=== PATIENT | male | born 1980 | race Caucasian/White ===

== ENCOUNTER 2022-03-15 00:08 | Emergency (ER) | payer OTHER, SELFPAY ==
[2022-03-15 00:25] VITALS: BP 149/108; PULSE 76; RESP 18; TEMP 36.7; O2SAT 97; BMI 35.6
--- NOTE | 2022-03-15 01:03 | XRR_ITS ---
PROCEDURE INFORMATION: Exam: XR Right Knee Exam date and time: 03/15/2022 1:24 AM Age: 42 years old Clinical indication: Pain; Knee; Right; Additional info: Knee pain and swelling TECHNIQUE: Imaging protocol: Radiologic exam of the Right knee. Views: 3 views. COMPARISON: No relevant prior studies available. FINDINGS: Bones/joints: Normal. Soft tissues: Normal. XR/XR knee RT 3V* [id number] IMPRESSION: No acute findings.
[2022-03-15] MEDS: ketorolac 30 mg/mL INJ IM (03:31)
[2022-03-15 03:32] VITALS: RESP 17
[2022-03-15] MEDS: oxyCODONE-APAP 5-325 mg Tablet 2 TAB PO (03:32)
[2022-03-15 03:54] VITALS: BP 127/84; PULSE 68; RESP 17; O2SAT 96
--- NOTE | 2022-03-15 03:56 | PC.NURSE ---
patient unable to bear weight. Crutches adjusted and crutch training performed.
--- NOTE | 2022-03-15 16:41 | W.ED.EXTPRO ---
HPI - Extremity Problem General: Chief complaint: Extremity Injury, Lower Stated complaint: Right Knee Pain Time Seen by Provider: 03/15/22 00:33 History of Present Illness: 42 year old gentleman who presents with right knee pain and swelling. He does not have a specific injury that he notes, but does note pain and swelling following activity yesterday. No prior knee injury. No fever. No hx of gout. No redness or streaking. No edema of the leg. MD Complaint: joint swelling and joint pain Onset (ago): hour(s) Pain Consistency: constant Location: right Quality: aching Radiation: none Relieving factors: immobilization Exacerbating factors: range of motion and weight bearing Associated symptoms: Deny arthralgias (no other), chest pain, fever(s), myalgias, rash or short of breath Review of Systems Const: Denies: fever(s) Card: Denies: chest pain Resp: Denies: dyspnea GI: Reports: nausea; Denies: abdominal pain or vomiting Musc: Denies: neck pain or back pain Skin/Breast: Denies: rash Neuro: Denies: numbness in extremities or weakness in extremities Physical Exam Const: COMMON NORMALS: no acute distress GENERAL APPEARANCE: cooperative; not ill appearing HENMT: COMMON NORMALS: normocephalic, atraumatic and Normal external nose present HEAD & SCALP: normocephalic and atraumatic NOSE: Normal external nose present Eye: COMMON NORMALS: Equal, round and reactive pupils present and EOMs intact bilaterally PUPIL: Yes Equal, round and reactive pupils present Neck/C-Spine: COMMON NORMALS: full ROM Chest: CHEST: Yes Symmetrical chest wall rise Resp: COMMON NORMALS: normal respiratory effort, No retractions and No use of accessory muscles Cardio: COMMON NORMALS: regular rate and regular rhythm RATE: regular rate RHYTHM: regular rhythm GI: INSPECTION: Yes normal to inspection Extremity: NARRATIVE EXTREMITY EXAM: Examination of the right knee reveals a small effusion. There is some warmth. There is no redness. There is pain with knee flexion. Valgus Testing is guarded, but somewhat positive. there's tenderness along the medial joint line. No significant tenderness otherwise. No deformity. Pulses in sensation are intact distally. There is no calf tenderness. There is no popliteal tenderness. There is no lower extremity edema. Neuro: MAJO COMA SCALE: document GCS findings Majo coma scale eye opening: Spontaneous Majo coma scale verbal response: Orientated Majo coma scale motor response: Obey commands Majo coma scale total score: 15 Skin: OTHER: see above Course Vital Signs: Vital signs: Vital Signs Temperature 98.1 F 03/15/22 00:25 Pulse Rate 68 03/15/22 03:54 Respiratory Rate 17 03/15/22 03:54 Blood Pressure 127/84 03/15/22 03:54 Pulse Oximetry 96 03/15/22 03:54 Oxygen Delivery Me thod 03/15/22 00:25 MDM - Extremity (Nontraumatic) Medical Decision Making 42 year old patient with an MCL injury clinically by exam. X-ray shows no deformity or fracture. There is a small effusion present. He will be treated with the name mobilizer, crutches is needed, and close outpatient follow up. He knows he returns for fever, worsening pain despite treatment, redness or streaking as well as edema or shortness of breath. Lab Data Radiology Impressions Knee X-Ray 03/15/22 01:03 IMPRESSION: No acute findings. Discharge Plan Discharge Patient Disposition: Home Clinical Impression: Acute knee pain, Acute internal derangement of knee Condition: Stable Prescriptions: New Percocet 7.5-325 mg tablet 1 tab PO Q6H PRN (Reason: pain) Qty: 6 0RF Medrol (Ethan) 4 mg tablets,dose pack See Rx Instructions .ROUTE .COMPLEX Qty: 21 0RF Rx Instructions: orally per package directions Discharge Orders: Discharge ED (Routine); Ordered 03/15/22 Ordered By: Estuardo Guidry Patient Instructions: Knee Sprain (ED), Knee Immobilizer (ED), Opioid Safety Activity Restrictions/Additional Instructions: Return for fever, worsening pain despite treatment, worsening swelling despite treatment, pain in your calf or leg or swelling in your calf or leg, redness, streaking, shortness of breath, chest discomfort, or any other concerning symptoms. Follow-up with your doctor next week. You may use the knee immobilizer for weightbearing as you tolerate. Do not use it any more than 1 week. Coding Level of Care Code ED Staff Training And Development Manager for Lamine Jay
== END 2022-03-15 03:57 | disposition home or self-care (01) ==
PROVIDERS: Emergency Provider Emergency Medicine
DX: M23.91 Unspecified internal derangement of right knee (principal)
CPT/HCPCS: 29530; 73562; 96372; 99284; E0114; J1885

== ENCOUNTER 2022-04-01 07:45 | Outpatient (CLI) | payer OTHER, SELFPAY ==
--- NOTE | 2022-04-01 07:56 | XR_ITS ---
WS: [id number] KUB, AP view, 04/01/2022 Clinical Data: STONES Comparison: None. Findings: There are bilateral irregular calcifications overlying both kidneys No abnormal intraabdominal masses are seen. There is no dilatated small bowel or evidence of obstruct ion. There is a small artifact, probably from surgery, overlying the left pubic symphysis. XR/XR KUB [id number] Impression: Bilateral renal calcifications.
== END 2022-04-01 07:46 | disposition home or self-care (01) ==
LOC: RAD 07:48
PROVIDERS: PCP Nurse Practitioner Pediatrics; Visit Provider Urology
DX: N20.0 Calculus of kidney (principal)
CPT/HCPCS: 74018; 82365; 88300; 99203

== ENCOUNTER → 2022-04-16 12:40 | Outpatient (BNVA) | payer OTHER, SELFPAY | PROVIDERS: PCP Nurse Practitioner Pediatrics; Visit Provider Nurse Practitioner Family | DX: N20.0 Calculus of kidney (principal) | CPT/HCPCS: 81003 ==

== ENCOUNTER 2022-04-30 08:30 | Outpatient (CLI) | payer OTHER, SELFPAY ==
--- NOTE | 2022-04-30 | US_ITS ---
WS: [id number] RIGHT UPPER QUADRANT ULTRASOUND HISTORY: RIGHT UPPER QUAD FOR ELEVATED LIVER ENZYMES COMPARISON: None available. Liver: 18.2 cm in length. Mildly enlarged liver. Coarsened echotexture from hepatic steatosis. No mas s or bile duct dilatation. Portal Vein: Normal hepatopetal flow with monophasic waveform. Gallbladder: Normally distended gallbladder with a stone measuring 1.7 cm. This stone is near the gal lbladder neck. Gallstone does not move with patient positioning and could be entrapped. At this time no evidence for acute cholecystitis. CBD: 0.8 cm Pancreas: Poorly visualized due to body habitus. Right kidney: 12.8 cm in length. Normal size and echogenicity. No hydronephrosis or mass. Aorta and IVC: Unremarkable abdominal aorta and IVC. No ascites. US/US abdomen limited [id number] IMPRESSION: 1. Cholelithiasis. Gallstone is noted at the gallbladder neck which does not m ove with patient positioning. The common bile duct is very minimally prominent. Consider surgical evaluation as this gallstone may be entrapped and result in acute cholecystitis with duct dilatation. 2. Moderate hepatomegaly and hepatic steatosis.
[2022-04-30 09:35] LABS: Blood Urea Nitrogen 9 mg/dL (6-20); Calcium 10.1 mg/dL (8.5-10.5); Carbon Dioxide 23 mmol/L (22-29); Chloride 106 mmol/L (98-107); Glomerular Filtration Rate 91.7 mL/min (90-130); Glucose 123 mg/dL (65-115); Osmolality Calculated 290 mOsm/kg (285-295); Phosphorus 2.2 mg/dL (2.5-4.5); Sodium 140 mmol/L (136-145); Uric Acid 10.5 mg/dL (3.4-7.0)
[2022-05-05 18:13] LABS: Calcium-Oxalate 4.12 (<2.00); Uric Stone 2.72 (<2.00); Urine Ammonia 24 Hour 17 mEq/day (14-62); Urine Citric Acid 24 Hour 337 mg/day (>320); Urine PH 24 Hour 5.9 (5.5-7.0); Urine Phosphorus 24 Hour 736 mg/day (<1100); Urine Potassium 24 Hour 43 mEq/day (19-135); Urine Sulfate 24 Hour 15 mmol/day (<30)
== END 2022-04-30 08:31 | disposition home or self-care (01) ==
LOC: RAD 08:32
PROVIDERS: Nurse Practitioner Family; PCP Nurse Practitioner Pediatrics; Visit Provider Family Medicine
DX: Z01.89 Encounter for other specified special examinations (principal); N20.0 Calculus of kidney; K80.20 Calculus of gallbladder without cholecystitis without obstruction; K76.0 Fatty (change of) liver, not elsewhere classified
CPT/HCPCS: 36415; 76705; 80048; 81003; 82131; 82140; 82340; 82436; 82507; 82570; 83735; 83935; 84100; 84300; 84550

== ENCOUNTER 2022-05-14 14:26 | Outpatient (CLI) | payer OTHER, SELFPAY ==
--- NOTE | 2022-05-14 14:36 | XR_ITS ---
WS: [id number] Exam: XR KUB [id number] Date/Time of Exam: 05/14/2022 2:36 PM Reason For Exam: Calculus of Kidney Comparison 04/01/2022. Multiple calcifications superimpose both kidneys apparently representing known renal stones. No bowel obstruction or free air. No sign of organ enlargement. Regional bony elements are intact. XR/XR KUB [id number] IMPRESSION: 1. Multiple calcifications superimposing the bilateral kidneys representing kno wn renal stones. 2. No acute abdominal process.
== END 2022-05-14 14:27 | disposition home or self-care (01) ==
LOC: RAD 14:29
PROVIDERS: PCP Nurse Practitioner Pediatrics; Visit Provider Urology
DX: N20.0 Calculus of kidney (principal); R82.992 Hyperoxaluria; R82.993 Hyperuricosuria
CPT/HCPCS: 74018; 81003; 99213

== ENCOUNTER 2022-07-26 17:31 | Emergency (ER) | payer OTHER, SELFPAY ==
[2022-07-26 17:45] VITALS: BP 152/84; PULSE 64; RESP 16; TEMP 36.6; O2SAT 99
--- NOTE | 2022-07-26 17:50 | ECG_ITS ---
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 Measurements Intervals [place] Rate: 58 P: 39 WY: 157 QRS: -1 QRSD: 96 T: 32 QT: 414 QTc: 409 Interpretive Statements SINUS BRADYCARDIA No previous ECG available for comparison Electronically Signed On 07-26-2022 20:07:22 BOMB SQUAD COMMANDER by Matias Valentin M.D. [id number] f
--- NOTE | 2022-07-26 19:38 | XRR_ITS ---
PROCEDURE INFORMATION: Exam: XR Chest Exam date and time: 07/26/2022 7:46 PM Age: 42 years old Clinical indication: Other: Near syncope episode; Additional info: Near synocpe TECHNIQUE: Imaging protocol: Radiologic exam of the chest. Views: 1 view. COMPARISON: CR XR KUB [id number] 05/14/2022 2:36 PM FINDINGS: Lungs: Visualized portions of the lungs are clear. There is no pulmonary venous congestion. Pleural spaces: Unremarkable. No pleural effusion. No pneumothorax. Heart/Mediastinum: Heart is within normal limits of size. Bones/joints: No acute fracture. XR/XR chest 1V portable [id number] IMPRESSION: No acute infiltrate.
--- NOTE | 2022-07-26 19:38 | ECG_ITS ---
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 Measurements Intervals [place] Rate: 57 P: 16 [place]: 172 QRS: 2 QRSD: 94 T: 26 QT: 421 QTc: 411 Interpretive Statements SINUS BRADYCARDIA Compared to ECG 07/26/2022 17:48:38 No significant changes Electronically Signed On 07-26-2022 20:08:41 ELASTIC CUTTER by Matias Valentin M.D. [id number]
--- NOTE | 2022-07-26 19:38 | CTR_ITS ---
PROCEDURE INFORMATION: Exam: CT Head Without Contrast Exam date and time: 07/26/2022 7:49 PM Age: 42 years old Clinical indication: Dizziness; Patient HX: HX traumatic brain injury with seizures since; Additional info: Near syncope TECHNIQUE: Imaging protocol: Computed tomography of the head without contrast. Radiation optimization: All CT scans at this facility use at least one of these dose optimization techniques: automated exposure control; mA and/or kV adjustment per patient size (includes targeted exams where dose is matched to clinical indication); or iterative reconstruction. COMPARISON: No relevant prior studies available. RADIATION DOSE METRICS: Total DLP (mGy-cm): 1180.08 FINDINGS: Brain: Normal. No hemorrhage. Unremarkable white matter. No mass effect. Cerebral ventricles: No ventriculomegaly. Paranasal sinuses: Visualized sinuses are unremarkable. No fluid levels. Mastoid air cells: Visualized mastoid air cells are well aerated. Bones/joints: Unremarkable. No acute fracture. Soft tissues: Unremarkable. CT/CT head wo con* [id number] IMPRESSION: No acute intracranial abnormality.
[2022-07-26 19:50] VITALS: BP 121/80; PULSE 56; RESP 14; O2SAT 98
[2022-07-26] MEDS: sodium chloride 0.9% 1,000 ML 999 ML IV (19:53)
[2022-07-26 20:28] LABS: Basophils # 0.1 10^3/uL (0.0-0.1); Basophils % 0.8 %; Eosinophils # 0.3 10^3/uL (0.0-0.8); Eosinophils % 4.6 %; Hematocrit 49.2 % (42.0-52.0); Hemoglobin 16.2 g/dL (11.7-16.6); Lymphocytes # 1.9 10^3/uL (0.8-4.8); Lymphocytes % 28.5 %; Mean Corpuscular HGB Conc 32.9 g/dL (30.0-36.0); Mean Corpuscular Hemoglobin 29.2 pg (28.0-34.0); Mean Corpuscular Volume 88.8 fl (80-94); Mean Platelet Volume 9.8 fL (7.4-10.4); Monocytes # 0.6 10^3/uL (0.2-0.9); Neutrophils # 3.68 10^3/uL (1.8-7.7); Neutrophils % 56.8 %; Nucleated Red Blood Cells % 0 %; Platelet Count 242 10^3/cmm (130-400); Red Blood Count 5.54 10^6/uL (4.1-5.3); Red Cell Distribution Width 12.7 % (12.1-15.1); White Blood Count 6.5 10^3/uL (4.0-10.0)
[2022-07-26 20:45] LABS: Troponin(5th) Baseline 6 ng/L (0-15)
[2022-07-26 20:53] LABS: Alanine Aminotransferase 39 U/L (0-41); Albumin Level 4.6 g/dL (3.5-5.2); Alkaline Phosphatase 86 U/L (40-130); Anion Gap 13.1 (5-19); Aspartate Amino Transferase 22 U/L (0-40); Blood Urea Nitrogen 11 mg/dL (6-20); Calcium 10.8 mg/dL (8.5-10.5); Carbon Dioxide 27 mmol/L (22-29); Chloride 101 mmol/L (98-107); Creatine Phosphokinase 99 U/L (39-308); Globulin 2.8 g/dL (1.3-4.6); Glomerular Filtration Rate 91.7 mL/min (90-130); Glucose 93 mg/dL (65-115); NT Pro B Type Natriuretic Pept 40 pg/mL (0-125); Osmolality Calculated 283 mOsm/kg (285-295); Potassium 4.1 mmol/L (3.5-5.1); Sodium 137 mmol/L (136-145); Total Bilirubin 0.7 mg/dL (0.15-1.2); Total Protein 7.4 g/dL (6.6-8.7)
[2022-07-26 21:20] VITALS: BP 130/70; PULSE 54; RESP 12; O2SAT 99
[2022-07-26 21:21] LABS: Add Urine Microscopic? NO; Charge for UA Resulting for Rev
[2022-07-26 21:38] LABS: Bilirubin Urine Neg (Negative); Blood Urine Neg (Negative); Glucose Urine UA Norm (Normal); Ketones Urine Negative (Negative); Leukocyte Esterase Urine Negative (Negative); Nitrate Urine Negative (Negative); Protein Urine Neg (Negative); Urine Appearance Clear (CLEAR); Urine Color Yellow (Yellow); Urobilinogen Urine Neg (Negative); pH Urine 5 (5-7)
--- NOTE | 2022-07-26 21:38 | ECG_ITS ---
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 Measurements Intervals [place] Rate: 50 P: 31 WY: 170 QRS: 4 QRSD: 100 T: 30 QT: 436 QTc: 400 Interpretive Statements SINUS BRADYCARDIA Compared to ECG 07/26/2022 20:05:30 No significant changes Electronically Signed On 07-27-2022 20:34:27 RELEASE COORDINATOR by Matias Valentin M.D. [id number]
[2022-07-26 22:00] VITALS: BP 113/81; PULSE 51; RESP 12; O2SAT 97
[2022-07-26 22:59] LABS: Troponin 5 2HR 6.77 ng/L (0-15)
[2022-07-26 23:00] VITALS: BP 130/81; PULSE 54; RESP 11; O2SAT 97
[2022-07-26 23:06] LABS: Troponin 5 2HR Delta 0.77 ABS# (0-10)
[2022-07-26 23:30] VITALS: BP 123/82; PULSE 50; RESP 12; O2SAT 97
--- NOTE | 2022-07-27 00:07 | ED_ITS ---
HPI - Dizziness General: Chief Complaint: Dizziness Stated Complaint: dizziness, vision problems Time Seen by Provider: 07/26/22 19:17 Source: patient History of Present Illness: HPI Narrative: 42 year old male with the history of seizure disorder and traumatic brain injury. He presents with three episodes of near syncope. One was the day prior, and he has had two today. These were at different levels of activity. there is no [employer] syncopal symptoms such as chest discomfort or shortness of breath, seizure or headache. He simply notes ?things beginning to get black? and has to sit down before passing out. He has not had these symptoms before. MD elicited complaint: lightheadedness and near syncope Pertinent past history: other Onset (ago): hour(s) Timing: sudden onset Severity: moderate Description: lightheadedness and near-syncope History of similar symptoms: No Exacerbating factors: movement/ambulation and change in body position Relieving factors: remaining still Associated symptoms: Denies change in hearing, chest pain, cough, fevers/chills, palpitations, short of breath, tinnitus or vomiting Associated neuro symptoms: Deny confusion, difficulty speaking, dysphagia, diplopia, extremity weakness, facial numbness, facial weakness, gait changes, numbness in extremities or visual changes Review of Systems Const: Denies: fever(s) Eyes: Denies: change in vision ENMT: Denies: change in hearing or tinnitus Card: Denies: chest pain or palpitations Resp: Denies: dyspnea, productive cough or non-productive cough GI: Denies: abdominal pain, vomiting or dysphagia Neuro: Denies: numbness in extremities or confusion PFSH ED PFSH: Medical History Bilateral renal stones Clinical picture consistent with medullary sponge kidney. Calculus of kidney Diabetes Hyperoxaluria Hyperuricosuria Surgical History History of cystoscopy History of gastric bypass History of lithotripsy Family History Mother Hypertension Father , At age 44 Cancer Kidney Social History Smoking and tobacco status: never smoked Alcohol intake: never Adopted: No Household members: spouse Marital status: service: Yes Current occupational status: disabled History of recent travel: No Physical Exam Const: COMMON NORMALS: no acute distress GENERAL APPEARANCE: cooperative; not ill appearing and not frail appearing HENMT: COMMON NORMALS: normocephalic, atraumatic and Normal external nose present HEAD & SCALP: normocephalic and atraumatic FACE & SINUS: normal facial exam and face symmetric NOSE: Normal external nose present Eye: COMMON NORMALS: Equal, round and reactive pupils present and EOMs intact bilaterally PUPIL: Yes Equal, round and reactive pupils present Neck/C-Spine: GENERAL: Yes trachea midline Chest: CHEST: Yes Symmetrical chest wall rise Resp: COMMON NORMALS: normal respiratory effort, No retractions, No use of accessory muscles and clear to auscultation bilaterally AUSCULTATION: clear to auscultation bilaterally Cardio: COMMON NORMALS: regular rhythm RATE: bradycardic RHYTHM: regular rhythm GI: COMMON NORMALS: Normal to inspection, nondistended, normoactive bowel sounds present Extremity: COMMON NORMALS: no pedal edema Neuro: MAJO COMA SCALE: document GCS findings [place] coma scale eye opening: Spontaneous Majo coma scale verbal response: Orientated Majo coma scale motor response: Obey commands Majo coma scale total score: 15 SENSORY EXAM: Yes extremities (intact) Psych: COMMON NORMALS: speech normal SPEECH: Yes normal speech Skin: COMMON NORMALS: no rashes or lesions noted GENERAL SKIN EXAM: no rashes or lesions noted Course Vital Signs: Vital signs: Vital Signs Temperature 97.9 F 07/26/22 17:45 Pulse Rate 52 L 07/27/22 00:32 Respiratory Rate 14 07/27/22 00:32 Blood Pressure 116/90 07/27/22 00:32 Pulse Oximetry 97 07/27/22 00:32 Oxygen Delivery Me thod 07/26/22 17:45 MDM - Dizziness Medical Decision Making Patient has exhibited bradycardia here on the monitor, as low as 45. This is at rest in sitting. He is normotensive. He has remained asymptomatic in the ER. His laboratory is not remarkable. No increased delta troponin. Chest X-ray and head CT are negative. Mo cardia is a likely cause, particularly with activity if rate is not increasing appropriately. Case management will be asked to set him up with a holter monitor, and cardiology follow up. He knows not to drive a car or operate any machinery, as well as to return for worsening symptoms or new ones. Lab Data 07/26/22 20:12 07/26/22 20:12 Radiology Impressions Chest X-Ray 07/26/22 19:38 IMPRESSION: No acute infiltrate. Head CT 07/26/22 19:38 IMPRESSION: No acute intracranial abnormality. Laboratory Results WBC 6.5 10^3/uL (4.0-10.0) 07/26/22 20:12 RBC 5.54 10^6/uL (4.1-5.3) H 07/26/22 20:12 Hgb 16.2 g/dL (11.7-16.6) 07/26/22 20:12 Hct 49.2 % (42.0-52.0) 07/26/22 20:12 MCV 88.8 fl (80-94) 07/26/22 20:12 MCH 29.2 pg (28.0-34.0) 07/26/22 20:12 MCHC 32.9 g/dL (30.0-36.0) 07/26/22 20:12 RDW 12.7 % (12.1-15.1) 07/26/22 20:12 Plt Count 242 10^3/cmm (130-400) 07/26/22 20:12 MPV 9.8 fL (7.4-10.4) 07/26/22 20:12 Neut % (Auto) 56.8 % 07/26/22 20:12 Lymph % (Auto) 28.5 % 07/26/22 20:12 [place] % (Auto) 9.0 % 07/26/22 20:12 Eos % (Auto) 4.6 % 07/26/22 20:12 Baso % (Auto) 0.8 % 07/26/22 20:12 Neut # (Auto) 3.68 10^3/uL (1.8-7.7) 07/26/22 20:12 Lymph # (Auto) 1.9 10^3/uL (0.8-4.8) 07/26/22 20:12 [place] # (Auto) 0.6 10^3/uL (0.2-0.9) 07/26/22 20:12 Eos # (Auto) 0.3 10^3/uL (0.0-0.8) 07/26/22 20:12 Baso # (Auto) 0.1 10^3/uL (0.0-0.1) 07/26/22 20:12 Nucleated RBC % (auto) 0 % 07/26/22 20:12 Nucleated RBCs # 0.0 /100WBC 07/26/22 20:12 Sodium 137 mmol/L (136-145) 07/26/22 20:12 Potassium 4.1 mmol/L (3.5-5.1) 07/26/22 20:12 Chloride 101 mmol/L (98-107) 07/26/22 20:12 Carbon Dioxide 27 mmol/L (22-29) 07/26/22 20:12 Anion Gap 13.1 (5-19) 07/26/22 20:12 BUN 11 mg/dL (6-20) 07/26/22 20:12 Creatinine 0.9 mg/dL (0.7-1.2) 07/26/22 20:12 GFR Calculation 91.7 mL/min (90-130) 07/26/22 20:12 Glucose 93 mg/dL (65-115) 07/26/22 20:12 Calculated Osmolality 283 mOsm/kg (285-295) L 07/26/22 20:12 Calcium 10.8 mg/dL (8.5-10.5) H 07/26/22 20:12 Total Bilirubin 0.7 mg/dL (0.15-1.2) 07/26/22 20:12 AST 22 U/L (0-40) 07/26/22 20:12 ALT 39 U/L (0-41) 07/26/22 20:12 Alkaline Phosphatase 86 U/L (40-130) 07/26/22 20:12 Creatine Kinase 99 U/L (39-308) 07/26/22 20:12 Troponin T Baseline 6 ng/L (0-15) 07/26/22 20:12 Troponin T 120 Minute 6.77 ng/L (0-15) 07/26/22 22:35 Delta Troponin T 0.77 ABS# (0-10) 07/26/22 22:35 NT-Pro-B Natriuret Pep 40 pg/mL (0-125) 07/26/22 20:12 Total Protein 7.4 g/dL (6.6-8.7) 07/26/22 20:12 Albumin 4.6 g/dL (3.5-5.2) 07/26/22 20:12 Globulin 2.8 g/dL (1.3-4.6) 07/26/22 20:12 Urine Color Yellow (Yellow) 07/26/22 21:12 Urine Appearance Clear (CLEAR) 07/26/22 21:12 Urine pH 5 (5-7) 07/26/22 21:12 Ur Specific [place] 1.020 (1.005-1.030) 07/26/22 21:12 Urine Protein Neg (Negative) 07/26/22 21:12 Urine Glucose (UA) Norm (Normal) 07/26/22 21:12 Urine Ketones Negative (Negative) 07/26/22 21:12 Urine Blood Neg (Negative) 07/26/22 21:12 Urine Nitrate Negative (Negative) 07/26/22 21:12 Urine Bilirubin Neg (Negative) 07/26/22 21:12 Urine Urobilinogen Neg mg/dL (Negative) 07/26/22 21:12 Ur Leukocyte Esterase Negative (Negative) 07/26/22 21:12 Discharge Plan Discharge Patient Disposition: Home Clinical Impression: Near syncope, Bradycardia, sinus Condition: Stable Prescriptions: No Action levetiracetam [Keppra] 250 mg tablet 250 mg PO DAILY potassium citrate 15 mEq tablet extended release 15 meq PO BID Qty: 180 3RF cephalexin 250 mg capsule 250 mg PO BID aripiprazole [Abilify] 10 mg tablet 10 mg PO DAILY omeprazole 20 mg capsule,delayed release(DR/EC) 20 mg PO DAILY Percocet 7.5-325 mg tablet 1 tab PO Q6H PRN (Reason: pain) Qty: 6 0RF Medrol (Ethan) 4 mg tablets,dose pack See Rx Instructions .ROUTE .COMPLEX Qty: 21 0RF Rx Instructions: orally per package directions Discharge Orders: Discharge ED (Routine); Ordered 07/27/22 Ordered By: Estuardo Guidry Referrals: Janice Rodney PHOTOGRAPHY SPOTTER [Primary Care Provider] - Patient Instructions: Bradycardia (ED), Near Syncope (ED) Activity Restrictions/Additional Instructions: Do not drive a car. Return for repeated episodes of near syncope or passing out, chest pain, shortness of breath, or any other new or concerning symptoms. He will be set up as an outpatient for Holter monitor to monitor your heart rate. You should get a call at the beginning of the week from our porter sample case regarding setting this up. Follow-up with your doctor this week. Coding Level of Care Code ED Associate Brand Manager for Lamine Jay
[2022-07-27 00:32] VITALS: BP 116/90; PULSE 52; RESP 14; O2SAT 97
== END 2022-07-27 00:49 | disposition home or self-care (01) ==
PROVIDERS: Emergency Provider Emergency Medicine; PCP Nurse Practitioner Pediatrics
DX: R55 Syncope and collapse (principal); R00.1 Bradycardia, unspecified; E11.9 Type 2 diabetes mellitus without complications
CPT/HCPCS: 36415; 70450; 71045; 80053; 81003; 82550; 83880; 84484; 85025; 93005; 99285; J7030

== ENCOUNTER → 2022-09-10 12:47 | Outpatient (BNVA) | payer OTHER, SELFPAY | PROVIDERS: PCP Nurse Practitioner Pediatrics; Visit Provider Internal Medicine | DX: R55 Syncope and collapse (principal); R00.2 Palpitations | CPT/HCPCS: 93005; 93242; 99204 ==

== ENCOUNTER 2022-10-08 10:46 | Outpatient (CLI) | payer OTHER, SELFPAY ==
--- NOTE | 2022-10-08 11:00 | USCV_ITS ---
BrunoJensenmarissafernando Age: 42 Gender: M : 1980 Exam Date: 10/08/2022 11:15 Ordering Phys: Shukri Rivera M.D ([email or web address]) Technologist: JESSICA Exam Location: [facility] [place] Indication: SHORTNESS OF BREATH BP: 120 / 80 HR: 57 Rhythm: Sinus Technical Quality: Adequate MEASUREMENTS (Male / Female) Normal Values 2D ECHO LVOT Diameter 2.0 cm LV Ejection Fraction MOD 2C 75.0 % LV Ejection Fraction 2C AL 75.9 % LA Diameter 3.7 cm LA Width 3.3 cm LA Height 4.9 cm RA Width 2.9 cm RA Height 4.5 cm Aorta at Sinotubular Diameter 2.4 cm IVC Diameter 1.6 cm M-MODE Aortic Annulus Diameter 2.8 cm LA Ao Ratio MM 1.3 MV E Point Septal Separation 0.3 cm DOPPLER AV Peak Velocity 147.0 cm/s LVOT Peak Velocity 135.0 cm/s AV Area Cont Eq vti 2.9 cm squared AV Area Cont Eq pk 2.9 cm squared MV Peak Velocity 89.0 cm/s MV Area PHT 3.3 cm squared Mitral E to A Ratio 1.3 MV E' Velocity 48.0 cm/s Mitral E to MV E' Ratio 7.7 Mitral E to LV E' Lateral Ratio 7.0 Mitral E to LV E' Septal Ratio 8.5 TR Peak Velocity 167.1 cm/s TR Peak Gradient 11.2 mmHg TR Mean Velocity 140.3 cm/s TR Mean Gradient 8.5 mmHg TR Velocity Time Integral 51.4 cm TV Peak E Velocity 65.0 cm/s Right Atrial Pressure 3.0 mmHg Pulmonary Artery Systolic Pressu 14.2 mmHg PV Peak Velocity 115.0 cm/s RV Acceleration Time 0.1 s RV Ejection Time 0.4 s RV AcT/ET 0.3 FINDINGS Left Ventricle Left ventricle is normal in size. LV systolic function is normal with EF of 60 to 65%. No regional wall motion abnormalities are seen. Right Ventricle Normal in size and function Right Atrium Normal in size Left Atrium Normal in size Mitral Valve Structurally normal mitral valve. Trace mitral regurgitation. Aortic Valve Structurally normal aortic valve.No significant stenosis or regurgitation. Tricuspid Valve Trace tricuspid regurgitation. Pulmonary artery systolic pressure is normal. Pulmonic Valve Not well-visualized. Pericardium Normal Aorta Normal in size IVC Appears to be normal CONCLUSIONS LV systolic function is normal with EF 60 to 65% Trace mitral regurgitation Trace tricuspid regurgitation. No comparison studies are available Shukri Rivera MD (Electronically Signed) Final Date: 22 October 2022 14:40 S
== END 2022-10-08 10:47 | disposition home or self-care (01) ==
LOC: RAD 10:47
PROVIDERS: PCP Nurse Practitioner Pediatrics; Visit Provider Internal Medicine
DX: R06.02 Shortness of breath (principal); I08.1 Rheumatic disorders of both mitral and tricuspid valves
CPT/HCPCS: 93306

== ENCOUNTER → 2022-12-10 12:48 | Outpatient (BNVA) | payer OTHER, SELFPAY | PROVIDERS: PCP Nurse Practitioner Pediatrics; Visit Provider Internal Medicine | DX: R55 Syncope and collapse (principal) | CPT/HCPCS: 99214 ==

== ENCOUNTER → 2023-03-17 09:10 | Outpatient (BNVA) | payer OTHER, SELFPAY | PROVIDERS: PCP Nurse Practitioner Pediatrics; Referring Provider Nurse Practitioner; Visit Provider Specialist | DX: M25.522 Pain in left elbow (principal); M77.02 Medial epicondylitis, left elbow | CPT/HCPCS: 73080; 99204 ==

== ENCOUNTER 2023-03-28 19:58 | Emergency (ER) | payer OTHER, SELFPAY ==
[2023-03-28 20:00] VITALS: BP 139/80; PULSE 70; RESP 22; TEMP 36.6; O2SAT 100; BMI 34.5
--- NOTE | 2023-03-28 20:31 | XRR_ITS ---
PROCEDURE INFORMATION: Exam: XR Chest Exam date and time: 03/28/2023 9:00 PM Age: 43 years old Clinical indication: Shortness of breath; Prior surgery; Surgery date: 6+ months; Surgery type: Gastric bypass; Patient HX: C/O SOB TECHNIQUE: Imaging protocol: Radiologic exam of the chest. Views: 1 view. COMPARISON: CR XR chest 1V portable [id number] 07/26/2022 7:46 PM FINDINGS: Lungs: The lungs are clear. Pleural spaces: Unremarkable. No pleural effusion. No pneumothorax. Heart/Mediastinum: Incidental calcified mediastinal nodes. Bones/joints: Unremarkable. XR/XR chest 1V portable [id number] IMPRESSION: No acute findings
--- NOTE | 2023-03-28 20:31 | ECG_ITS ---
[facility] Test Date: 2023-03-28 Pat Name: Sumeet Carr Department: Room: Gender: Male 2Nd Pressman: : 1980 Requested By: Estuardo Madrigal Order Number: [id number] Liam MD: Alberto Ellison M.D. Measurements Intervals [place] Rate: 62 P: 32 [place]: 173 QRS: -11 QRSD: 93 T: 15 QT: 397 QTc: 405 Interpretive Statements SINUS RHYTHM Compared to ECG 07/26/2022 21:41:48 Sinus bradycardia no longer present Electronically Signed On 03-29-2023 16:02:36 CDT by Alberto Ellison M.D. [id number]
--- NOTE | 2023-03-28 20:42 | ECG_ITS ---
[facility] Test Date: 2023-03-28 Pat Name: Sumeet Carr Department: Room: Gender: Male Morning Nanny: : 1980 Requested By: Estuardo Madrigal Order Number: [id number] Liam MD: Alberto Ellison M.D. Measurements Intervals [place] Rate: 71 P: 0 [place]: 0 QRS: 7 QRSD: 95 T: 26 QT: 390 QTc: 425 Interpretive Statements Sinus RHYTHM ABNORMAL RHYTHM ECG Compared to ECG 07/26/2022 21:41:48 Sinus bradycardia no longer present Electronically Signed On 03-29-2023 16:02:09 CDT by Alberto Ellison M.D. [id number]
[2023-03-28 21:07] LABS: Basophils # 0.1 10^3/uL (0.0-0.1); Basophils % 0.5 %; Eosinophils # 0.4 10^3/uL (0.0-0.8); Eosinophils % 4.4 %; Hematocrit 47.5 % (37-53); Lymphocytes # 2.3 10^3/uL (0.8-4.8); Lymphocytes % 23.1 %; Mean Corpuscular HGB Conc 34.3 g/dL (30-55); Mean Corpuscular Volume 87.5 fl (82-101); Mean Platelet Volume 9.5 fL (7.4-10.4); Monocytes # 0.9 10^3/uL (0.2-0.9); Monocytes % 9.2 %; Neutrophils # 6.15 10^3/uL (1.8-7.7); Neutrophils % 62.5 %; Nucleated Red Blood Cells % 0 %; Platelet Count 251 10^3/cmm (157-399); Red Blood Count 5.43 10^6/uL (3.85-5.65); Red Cell Distribution Width 12.5 % (12.1-15.1); White Blood Count 9.85 10^3/uL (3.29-11.43)
--- NOTE | 2023-03-28 21:07 | W.ED.SOB ---
HPI - SOB/Dyspnea General: Chief Complaint: Shortness of Breath/Dyspnea Stated Complaint: shortness of breath Time Seen by Provider: 03/28/23 20:13 History of Present Illness: HPI Narrative: 43-year-old male presenting with shortness of breath. Has had some chest pressure today 2. He has had a dry cough for a couple of days. No fever. No leg swelling. Associated symptoms: Reports chest pain; Deny abdominal pain, fever(s), nausea or vomiting Review of Systems Const: Denies: fever(s) ENMT: Denies: throat pain Card: Reports: chest pain Resp: Reports: dyspnea GI: Denies: abdominal pain, nausea or vomiting Skin/Breast: Denies: rash PFSH ED PFSH: Medical History Bilateral renal stones Clinical picture consistent with medullary sponge kidney. Calculus of kidney Diabetes Hyperoxaluria Hyperuricosuria Surgical History History of cystoscopy History of gastric bypass History of lithotripsy Family History Mother Hypertension Father , At age 44 Cancer Kidney Social History Smoking and tobacco status: never smoked Alcohol intake: never Adopted: No Household members: spouse Marital status: service: Yes Current occupational status: disabled Physical Exam Const: COMMON NORMALS: no acute distress GENERAL APPEARANCE: cooperative; not ill appearing and not frail appearing HENMT: COMMON NORMALS: normocephalic, atraumatic and Normal external nose present HEAD & SCALP: normocephalic and atraumatic FACE & SINUS: normal facial exam and face symmetric NOSE: Normal external nose present Eye: COMMON NORMALS: Equal, round and reactive pupils present and EOMs intact bilaterally PUPIL: Yes Equal, round and reactive pupils present Neck/C-Spine: GENERAL: Yes trachea midline Chest: CHEST: Yes Symmetrical chest wall rise Resp: COMMON NORMALS: normal respiratory effort, No retractions, No use of accessory muscles and clear to auscultation bilaterally AUSCULTATION: clear to auscultation bilaterally Cardio: COMMON NORMALS: regular rate and regular rhythm RATE: regular rate RHYTHM: regular rhythm GI: COMMON NORMALS: Normal to inspection, nondistended, normoactive bowel sounds present Extremity: COMMON NORMALS: no pedal edema Neuro: MAJO COMA SCALE: document GCS findings [place] coma scale eye opening: Spontaneous Majo coma scale verbal response: Orientated Majo coma scale motor response: Obey commands Majo coma scale total score: 15 SENSORY EXAM: Yes extremities (intact) Psych: COMMON NORMALS: speech normal SPEECH: Yes normal speech Skin: COMMON NORMALS: no rashes or lesions noted GENERAL SKIN EXAM: no rashes or lesions noted Course Vital Signs: Vital signs: Vital Signs Temperature 97.8 F 03/28/23 20:00 Pulse Rate 70 03/29/23 00:23 Respiratory Rate 16 03/29/23 00:23 Blood Pressure 151/95 03/28/23 21:11 Pulse Oximetry 95 03/29/23 00:23 Oxygen Delivery Me thod Room Air 03/28/23 22:14 MDM - SOB/Dyspnea Medical Decision Making 43-year-old gentleman who is short of breath, only with exertion. His EKG is normal. CBC and BMP are normal. D-dimer is normal. COVID swab is negative. Chest x-ray showed no acute findings. We got the patient up to walk him, and he is significantly short of breath with any exertion. This is despite DuoNeb treatment here. He was given Solu-Medrol as well. Chest CTA was performed showing no evidence of pulmonary edema, infiltrate, or embolism. After his second walk study following Solu-Medrol, the patient feels much improved. This is likely an airway issue. He will be treated for acute bronchitis with steroids, inhalers, and antibiotics. To return for worsening symptoms. Close outpatient follow-up. Lab Data 03/28/23 20:55 03/28/23 20:55 Labs/Radiology: Radiology Impressions Chest X-Ray 03/28/23 20:31 IMPRESSION: No acute findings Chest CTA 03/28/23 22:28 IMPRESSION: 1. No pulmonary embolism or pneumonia. 2. No acute chest findings Laboratory Results WBC 9.85 10^3/uL (3.29-11.43) 03/28/23 20:55 RBC 5.43 10^6/uL (3.85-5.65) 03/28/23 20:55 Hgb 16.30 g/dL (11.27-16.99) 03/28/23 20:55 Hct 47.5 % (37-53) 03/28/23 20:55 MCV 87.5 fl (82-101) 03/28/23 20:55 MCH 30.0 pg (27-33) 03/28/23 20:55 MCHC 34.3 g/dL (30-55) 03/28/23 20: RDW 12.5 % (12.1-15.1) 03/28/23 20:55 Plt Count 251 10^3/cmm (157-399) 03/28/23 20:55 MPV 9.5 fL (7.4-10.4) 03/28/23 20:55 Neut % (Auto) 62.5 % 03/28/23 20: Lymph % (Auto) 23.1 % 03/28/23 20:55 [place] % (Auto) 9.2 % 03/28/23 20:55 Eos % (Auto) 4.4 % 03/28/23 20: Baso % (Auto) 0.5 % 03/28/23 20: Neut # (Auto) 6.15 10^3/uL (1.8-7.7) 03/28/23 20:55 Lymph # (Auto) 2.3 10^3/uL (0.8-4.8) 03/28/23 20:55 [place] # (Auto) 0.9 10^3/uL (0.2-0.9) 03/28/23 20: Eos # (Auto) 0.4 10^3/uL (0.0-0.8) 03/28/23 20: Baso # (Auto) 0.1 10^3/uL (0.0-0.1) 03/28/23 20: Nucleated RBC % (auto) 0 % 03/28/23 20: Nucleated RBCs # 0.0 /100WBC 03/28/23 20: D-Dimer 0.40 ug/mLFEU (0-0.59) 03/28/23 20:55 Sodium 142 mmol/L (136-145) 03/28/23 20:55 Potassium 4.0 mmol/L (3.5-5.1) 03/28/23 20: Chloride 103 mmol/L (98-107) 03/28/23 20:55 Carbon Dioxide 27 mmol/L (22-29) 03/28/23 20:55 Anion Gap 16.0 (5-19) 03/28/23 20:55 BUN 13 mg/dL (6-20) 03/28/23 20:55 Creatinine 1.2 mg/dL (0.7-1.2) 03/28/23 20:55 GFR Calculation 65.5 mL/min (90-130) L 03/28/23 20:55 Glucose 98 mg/dL (65-115) 03/28/23 20:55 Calculated Osmolality 294 mOsm/kg (285-295) 03/28/23 20:55 Lactic Acid 2.4 mmol/L (0.5-2.2) H 03/28/23 20:55 Lactic Acid (Sepsis) 1.6 mmol/L (0.5-2.2) 03/29/23 00:15 Calcium 10.6 mg/dL (8.5-10.5) H 03/28/23 20:55 Total Bilirubin 0.6 mg/dL (0.15-1.2) 03/28/23 20:55 AST 29 U/L (0-40) 03/28/23 20:55 ALT 56 U/L (0-41) H 03/28/23 20:55 Alkaline Phosphatase 117 U/L (40-130) 03/28/23 20:55 Troponin T Baseline 6 ng/L (0-15) 03/28/23 20:55 Troponin T 120 Minute 7.66 ng/L (0-15) 03/28/23 22:48 Delta Troponin T 1.66 ABS# (0-10) 03/28/23 22:48 NT-Pro-B Natriuret Pep 63 pg/mL (0-125) 03/28/23 20:55 Total Protein 7.5 g/dL (6.6-8.7) 03/28/23 20:55 Albumin 4.6 g/dL (3.5-5.2) 03/28/23 20:55 Globulin 2.9 g/dL (1.3-4.6) 03/28/23 20:55 SARS-CoV-2 Ag (Rapid) negative (Negative) 03/28/23 20:47 Discharge Plan Discharge Patient Disposition: Home Clinical Impression: Acute bronchitis with bronchospasm Condition: Stable Prescriptions: New Medrol (Ethan) 4 mg tablets,dose pack See Rx Instructions .ROUTE .COMPLEX Qty: 21 0RF Rx Instructions: orally per package directions doxycycline hyclate 100 mg tablet 100 mg PO BID 7 Days Qty: 14 0RF albuterol sulfate 90 mcg/actuation HFA aerosol inhaler 2 inh INHALATION Q4H PRN (Reason: shortness of breath or wheezing) Qty: 6.7 1RF No Action levetiracetam [Keppra] 250 mg tablet 250 mg PO DAILY potassium citrate 15 mEq tablet extended release 15 meq PO BID Qty: 180 3RF meloxicam 15 mg tablet 15 mg PO DAILY Qty: 30 0RF aripiprazole [Abilify] 10 mg tablet 10 mg PO DAILY omeprazole 20 mg capsule,delayed release(DR/EC) 20 mg PO DAILY Discharge Orders: Discharge ED (Routine); Ordered 03/29/23 Ordered By: Estuardo Guidry Referrals: Teresita Wilson FNP [Primary Care Provider] - 1-3 days Patient Instructions: Acute Bronchitis (ED) Activity Restrictions/Additional Instructions: Use your inhaler every 4 hours while awake scheduled for the next 48 hours, then as needed following. Other medications as directed. Return for worsening shortness of breath, fever despite 2-3 doses of antibiotics, chest discomfort, other concerning symptoms. Follow-up with your doctor this week. 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
[2023-03-28 21:11] VITALS: BP 151/95; PULSE 65; RESP 16; O2SAT 97
[2023-03-28 21:29] LABS: Lactic Sepsis W/Reflex 2.4 mmol/L (0.5-2.2)
[2023-03-28 21:32] LABS: Troponin(5th) Baseline 6 ng/L (0-15)
[2023-03-28 21:41] LABS: SARS Covid-2 Antigen negative (Negative)
[2023-03-28 21:41] LABS: Alanine Aminotransferase 56 U/L (0-41); Albumin Level 4.6 g/dL (3.5-5.2); Alkaline Phosphatase 117 U/L (40-130); Aspartate Amino Transferase 29 U/L (0-40); Blood Urea Nitrogen 13 mg/dL (6-20); Calcium 10.6 mg/dL (8.5-10.5); Carbon Dioxide 27 mmol/L (22-29); Chloride 103 mmol/L (98-107); Globulin 2.9 g/dL (1.3-4.6); Glomerular Filtration Rate 65.5 mL/min (90-130); Glucose 98 mg/dL (65-115); NT Pro B Type Natriuretic Pept 63 pg/mL (0-125); Osmolality Calculated 294 mOsm/kg (285-295); Sodium 142 mmol/L (136-145); Total Bilirubin 0.6 mg/dL (0.15-1.2); Total Protein 7.5 g/dL (6.6-8.7)
[2023-03-28] MEDS: ipratropium-albuterol 3 mL Neb INHALATION (22:11)
[2023-03-28 22:12] VITALS: PULSE 63; RESP 18; O2SAT 100
[2023-03-28 22:14] VITALS: PULSE 70; RESP 18; O2SAT 100
--- NOTE | 2023-03-28 22:28 | CTR_ITS ---
PROCEDURE INFORMATION: Exam: CTA Chest With Contrast Exam date and time: 03/28/2023 11:15 PM Age: 43 years old Clinical indication: Shortness of breath; Chest pressure; Prior surgery; Surgery date: 6+ months; Surgery type: Gastric bypass; Patient HX: Chest pain with SOB, worse with exertion. ; Additional info: Chest pain, SOB TECHNIQUE: Imaging protocol: Computed tomographic angiography of the chest with contrast. Exam focused on the arteries. 3D rendering (Not supervised by radiologist): MIP and/or 3D reconstructed images were created by the technologist. Radiation optimization: All CT scans at this facility use at least one of these dose optimization techniques: automated exposure control; mA and/or kV adjustment per patient size (includes targeted exams where dose is matched to clinical indication); or iterative reconstruction. Contrast material: OMNI 350; Contrast volume: 56 ml; Contrast route: INTRAVENOUS (IV); REPORTING DATA: Count of CT and Cardiac NM exams in prior 12 months: This patient has received [address] and 0 known cardiac nuclear medicine studies in the 12 months prior to the current study. COMPARISON: CR (CHEST, ) 03/28/2023 9:00 PM RADIATION DOSE METRICS: Total DLP (mGy-cm): 582.57 FINDINGS: Pulmonary arteries: Overall exam quality is good for evaluating the pulmonary arteries. There are no intraluminal filling defects to indicate pulmonary embolism. Aorta: Unremarkable. No aortic aneurysm. No aortic dissection. Lungs: In the left lower lobe there is a 3 mm subpleural noncalcified nodule which is most likely incidental if there is no history of malignancy. Right lower lobe incidental calcified granuloma. Pleural spaces: Unremarkable. No pneumothorax. No pleural effusion. Heart: Unremarkable. No cardiomegaly. No pericardial effusion. Coronary arteries: No calcified plaque in the coronary arteries. Lymph nodes: Unremarkable. No enlarged lymph nodes. Stomach and bowel: Chronic gastric postop changes. The gallbladder is surgically absent. Bones/joints: Unremarkable. No acute fracture. Soft tissues: Unremarkable. CT/CT angio chest PE protcl [id number] IMPRESSION: 1. No pulmonary embolism or pneumonia. 2. No acute chest findings
[2023-03-28 22:49] LABS: Reflex Lactate Order REFLEX LACTIC ORDERD
[2023-03-28] MEDS: methylPREDNISolone sod succ 125 MG in water for injection-sterile 2 ML 24 MG IVP (22:56)
[2023-03-28] MEDS: iohexol 350 mg/mL 500 mL Btl (per mL) IV (23:16)
[2023-03-28 23:44] LABS: Troponin 5 2HR 7.66 ng/L (0-15)
[2023-03-28 23:49] LABS: Troponin 5 2HR Delta 1.66 ABS# (0-10)
[2023-03-29 00:23] VITALS: PULSE 70; RESP 16; O2SAT 95
[2023-03-29 00:39] LABS: Lactic Acid level (Lactate) 1.6 mmol/L (0.5-2.2)
[2023-03-29 01:09] VITALS: BP 151/95; PULSE 70; RESP 16; TEMP 36.6; O2SAT 95
== END 2023-03-29 01:14 | disposition home or self-care (01) ==
PROVIDERS: Emergency Provider Emergency Medicine; PCP Nurse Practitioner
DX: J20.9 Acute bronchitis, unspecified (principal); Z20.822 Contact with and (suspected) exposure to COVID-19; E11.9 Type 2 diabetes mellitus without complications
CPT/HCPCS: 36415; 71045; 71275; 80053; 83605; 83880; 84484; 85025; 85378; 87426; 93005; 94640; 96374; 99285; J2930; Q9967

== ENCOUNTER 2023-04-28 15:33 | Emergency (ER) | payer OTHER, SELFPAY ==
[2023-04-28 15:53] VITALS: BP 129/94; PULSE 68; RESP 18; TEMP 36.7; O2SAT 98; BMI 34.0
--- NOTE | 2023-04-28 16:05 | US_ITS ---
WS: [id number] TESTICULAR ULTRASOUND HISTORY: left testicular pain COMPARISON: None available. TECHNIQUE: Real-time and color Doppler imaging or utilized to perform a testicular ultrasound. Right testicle: 3.5 cm x 2.6 cm x 2.0 cm. Normal size testicle. Variable echogenicity throughout the testicle. Decreased color within the testi hali and limited color Doppler. No mass. No significant hydrocele. Right epididymis: Enlarged heterogeneous epididymis. No increased vascularity. Left testicle: 3.2 cm x 2.5 cm x 2.1 cm. Normal size testicle. There is variable echogenicity within the testicle. Very limited color Doppler is identified. There is Doppler identified within the periphery of the testicle. No significant hydrocele. Left epididymis: Epididymis is enlarged and hypervascular. Prominent pampiniform plexus but does not increase with Valsalva. IMPRESSION: 1. Variable echogenicity within each testicle but greater involving the LEFT testicle. There is blood flow present but it is decreased. Intermittent torsion is not excluded. If patient's symptoms persis t recommend repeat ultrasound evaluation. 2. Acute LEFT epididymitis. 3. Probable LEFT varicocele.
--- NOTE | 2023-04-28 16:05 | W.ED.MALEGU ---
HPI - Male Genitourinary General: Chief complaint: General Medical Stated complaint: [facility] Time Seen by Provider: 04/28/23 15:50 Source: patient Mode of arrival: ambulatory Limitations: no limitations History of Present Illness: Patient is a 43-year-old male who presents to ED today with complaint of left testicular pain and possible swelling that he noticed over the past few days. No injury or trauma. Patient states he is urinating normally. He feels like the superior aspect of his testicle is swollen. [facility] and [facility] the patient here for further evaluation. He states he masturbated yesterday evening thinking ejaculation would help his symptoms but found it actually made this worse. Patient states he is sexually active/documents with his and has no concerns for STDs. He is not having any dysuria or penile discharge. Has not noticed any redness or warmth to the scrotum. MD Complaint: testicle pain Onset (ago): day(s) Location: left testicle Severity: moderate Relieving factors: none Associated symptoms: Deny dysuria, hematuria, nausea or vomiting Related Data: Sexually active: Yes (monogamous with ) Review of Systems Const: Denies: fever(s), chills, body aches, fatigue or malaise GI: Denies: abdominal pain, nausea, vomiting or diarrhea : Reports: testicular pain and painful ejaculations (yesterday); Denies: flank pain, difficulty urinating, dysuria, urinary frequency, urinary urgency, urinary hesitancy, hematuria or hematospermia PFS ED PFSH: Medical History Bilateral renal stones Clinical picture consistent with medullary sponge kidney. Calculus of kidney Diabetes Hyperoxaluria Hyperuricosuria Surgical History History of cystoscopy History of gastric bypass History of lithotripsy Family History Mother Hypertension Father , At age 44 Cancer Kidney Social History Smoking and tobacco/nicotine status: never used tobacco/nicotine Alcohol intake: never Adopted: No Household members: spouse Marital status: service: Yes Current occupational status: disabled Physical Exam Const: COMMON NORMALS: no acute distress, patient oriented x3, no limitations, alert and well nourished Resp: COMMON NORMALS: normal respiratory effort and clear to auscultation bilaterally AUSCULTATION: clear to auscultation bilaterally Cardio: COMMON NORMALS: regular rate and regular rhythm RATE: regular rate RHYTHM: regular rhythm GI: COMMON NORMALS: Normal to inspection, nondistended, normoactive bowel sounds present, Soft to palpation, non-tender, No hepatosplenomegaly present and no masses PALPATION: Yes Soft to palpation and Yes No hepatosplenomegaly present : COMMON NORMALS: Yes no CVA tenderness BLADDER/KIDNEY EXAM: Yes no CVA tenderness PENIS: normal penis MEATUS: meatus normal SCROTUM: Yes testes descended bilaterally and Yes Cremasteric reflex present TESTES: Yes testicular lie normal, No testicular swelling, Yes testicular tenderness, Yes epididymal tenderness and No blue dot sign Back/Pelvis: COMMON NORMALS: no CVA tenderness Extremity: GENERAL: Yes normal exam except as noted Neuro: COMMON NORMALS: patient oriented x3 SENSORIUM/ORIENTATION: Yes alert Skin: COMMON NORMALS: no rashes or lesions noted GENERAL SKIN EXAM: no rashes or lesions noted Course Vital Signs: Vital signs: Vital Signs Temperature 98.0 F 04/28/23 15:53 Pulse Rate 68 04/28/23 15:53 Respiratory Rate 18 04/28/23 15:53 Blood Pressure 129/94 04/28/23 15:53 Pulse Oximetry 98 04/28/23 15:53 Oxygen Delivery Me thod Room Air 04/28/23 15:53 MDM - Male Medical Decision Making On physical exam patient is tender to the left epididymis. Ultrasound confirming left-sided epididymitis. He did have some varicosities. This was prelim report from consultant technology. Patient is 43 and sexually active/monogamous with his . He will be placed on coverage for enteric pathogens with Levaquin. Return ED precautions given. Lab Data 04/28/23 16:15 04/28/23 16:15 Laboratory Results WBC 6.62 10^3/uL (3.29-11.43) 04/28/23 16:15 RBC 5.59 10^6/uL (3.85-5.65) 04/28/23 16:15 Hgb 16.80 g/dL (11.27-16.99) 04/28/23 16:15 Hct 53.0 % (37-53) 04/28/23 16:15 MCV 94.8 fl (82-101) 04/28/23 16:15 MCH 30.1 pg (27-33) 04/28/23 16:15 MCHC 31.7 g/dL (30-55) 04/28/23 16:15 RDW 13.0 % (12.1-15.1) 04/28/23 16:15 Plt Count 234 10^3/cmm (157-399) 04/28/23 16:15 MPV 9.4 fL (7.4-10.4) 04/28/23 16:15 Neut % (Auto) 58.5 % 04/28/23 16:15 Lymph % (Auto) 26.6 % 04/28/23 16:15 [place] % (Auto) 9.5 % 04/28/23 16:15 Eos % (Auto) 4.2 % 04/28/23 16:15 Baso % (Auto) 0.9 % 04/28/23 16:15 Neut # (Auto) 3.87 10^3/uL (1.8-7.7) 04/28/23 16:15 Lymph # (Auto) 1.8 10^3/uL (0.8-4.8) 04/28/23 16:15 [place] # (Auto) 0.6 10^3/uL (0.2-0.9) 04/28/23 16:15 Eos # (Auto) 0.3 10^3/uL (0.0-0.8) 04/28/23 16:15 Baso # (Auto) 0.1 10^3/uL (0.0-0.1) 04/28/23 16:15 Nucleated RBC % (auto) 0 % 04/28/23 16:15 Nucleated RBCs # 0.0 /100WBC 04/28/23 16:15 XR interpretation done by ED provider, pending radiology final review (prelim US report given) Discharge Plan Discharge Patient Disposition: Home Clinical Impression: Left epididymitis Condition: Stable Prescriptions: New levofloxacin 500 mg tablet 500 mg PO DAILY 10 Days Qty: 10 0RF No Action potassium citrate 15 mEq tablet extended release 15 meq PO BID Qty: 180 3RF aripiprazole [Abilify] 10 mg tablet 5 mg PO DAILY levetiracetam 500 mg Tablet 500 mg PO BID sumatriptan succinate 50 mg Tablet See Rx Instructions .ROUTE .COMPLEX PRN (Reason: Migraine Headache) Rx Instructions: 50 mg orally at onset of headache. May repeat after 2 hours not to exceed 2 tablets in 24 hours. tamsulosin 0.4 mg Capsule 0.4 mg PO QPM lisinopril 10 mg Tablet 5 mg PO DAILY testosterone cypionate 200 mg/mL Oil 200 mg SUBCUT Q28D Discharge Orders: Discharge ED (Routine); Ordered 04/28/23 Ordered By: Lillian Helms Referrals: Teresita Wilson FNP [Primary Care Provider] - Patient Instructions: Epididymitis Activity Restrictions/Additional Instructions: As we discussed we will place you on antibiotic coverage for epididymitis. We discussed wearing tight fitting underwear, scrotal elevation, and ice. [facility] if symptoms do not seem to be improving. You may return to the emergency department for worsening or severe scrotal/testicular pain, redness/warmth to the scrotum, fevers, inability to take your antibiotics, or any other concerns you may have. 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
--- NOTE | 2023-04-28 16:06 | PC.PHAR ---
forrest ramachandran for med list 04/28/23 4:05 pm
[2023-04-28 16:21] LABS: Basophils # 0.1 10^3/uL (0.0-0.1); Basophils % 0.9 %; Eosinophils # 0.3 10^3/uL (0.0-0.8); Eosinophils % 4.2 %; Lymphocytes # 1.8 10^3/uL (0.8-4.8); Lymphocytes % 26.6 %; Mean Corpuscular HGB Conc 31.7 g/dL (30-55); Mean Corpuscular Hemoglobin 30.1 pg (27-33); Mean Corpuscular Volume 94.8 fl (82-101); Mean Platelet Volume 9.4 fL (7.4-10.4); Monocytes # 0.6 10^3/uL (0.2-0.9); Monocytes % 9.5 %; Neutrophils # 3.87 10^3/uL (1.8-7.7); Neutrophils % 58.5 %; Nucleated Red Blood Cells % 0 %; Platelet Count 234 10^3/cmm (157-399); Red Blood Count 5.59 10^6/uL (3.85-5.65); White Blood Count 6.62 10^3/uL (3.29-11.43)
[2023-04-28 16:45] VITALS: BP 122/88; PULSE 60; O2SAT 96
[2023-04-28 16:58] LABS: Alanine Aminotransferase 46 U/L (0-41); Albumin Level 4.1 g/dL (3.5-5.2); Alkaline Phosphatase 78 U/L (40-130); Blood Urea Nitrogen 11 mg/dL (6-20); Calcium 9.9 mg/dL (8.5-10.5); Carbon Dioxide 20 mmol/L (22-29); Chloride 105 mmol/L (98-107); Globulin 3.1 g/dL (1.3-4.6); Glomerular Filtration Rate 72.4 mL/min (90-130); Glucose 112 mg/dL (65-115); Osmolality Calculated 288 mOsm/kg (285-295); Sodium 139 mmol/L (136-145); Total Bilirubin 0.5 mg/dL (0.15-1.2); Total Protein 7.2 g/dL (6.6-8.7)
[2023-04-28 17:05] LABS: Anion Gap 17.9 (5-19); Aspartate Amino Transferase 27 U/L (0-40); Potassium 3.9 mmol/L (3.5-5.1)
== END 2023-04-28 16:45 | disposition home or self-care (01) ==
PROVIDERS: Emergency Provider Physician Assistant; PCP Nurse Practitioner
DX: N45.1 Epididymitis (principal); Z79.890 Hormone replacement therapy; E11.9 Type 2 diabetes mellitus without complications
CPT/HCPCS: 36415; 76870; 80053; 85025; 99284

== ENCOUNTER 2023-05-04 07:29 | Outpatient (CLI) | payer OTHER, SELFPAY ==
--- NOTE | 2023-05-04 | ECG_ITS ---
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 Interpretive Statements Lung unchanged pre/post procedure Intraprocedure shortess of breath Symptoms resoled by discharge PROCEDURE: At the baseline, the EKG revealed sinus bradycardia with a rate of [address]-T changes.. The baseline heart was 53 bpm with a blood pressue of 120/87 mm of Hg Lexiscan was infused over a period of 20 seconds. A total of 0.4 milligrams of Lexiscan was infused. The stress phase was continued for a total of 5 minutes. Heart rate at the end of the stress phase was left anterior descending artery bpm with a blood pressure 106/69 mm of Hg. The EKG at the peak infusion revealed no significant changes. Sestamibi was injected 20 seconds after the Lexiscan infusion. Heart rate at the end of the recovery phase was 70 bpm with a blood pressure of 112/70 mm of Hg. CONCLUSION: 1. No significant EKG changes with the LexiScan infusion 2. No LexiScan induced chest pain or cardiac arrhythmia 3. Normal blood pressure and heart rate response 4. Sestamibi/sestamibi perfusion scan pending; see separate report. Electronically Signed On 05-07-2023 14:25:16 CDT by Matias Valentin M.D. [email or web address]
[2023-05-04 07:32] VITALS: BMI 34.7
--- NOTE | 2023-05-04 07:39 | NMCV_ITS ---
NM ronit perf SPECT r/s* [id number] Sumeet Carr Age: 43 Gender: M : 1980 Exam Date: 05/04/2023 07:39 Ordering Phys: Teresita Wilson Technologist: ROSA M Paz Exam Location: [facility] Indications: DYSPNEA STRESS TEST Please see separate stress test report in [facility] for full findings IMAGE PROTOCOL Rest/Stress 1 Lexiscan Day Radiopharmaceutical Dose (mCi) Administration Site Administered by Rest: Tc-99m 11.0 IV ROSA M Paz Sestamibi Stress:Tc-99m 30.4 IV ROSA M Paz Sestamibi Rest: 04-May-2023 60 Discovery 630 Stress: 04-May-2023 30 Discovery 630 0.4mg Lexiscan. Images obtained in supine and prone position. SPECT RESULTS Technical Quality: Excellent Raw Data Analysis: Normal Image Corrections: No attenuation or motion correction applied Summed Stress Score: 0 Summed Rest Score: 0 Summed Difference Score: 0 PERFUSION FINDINGS Fairly uniform myocardial tracer uptake with no significant perfusion abnormalities FUNCTIONAL RESULTS (calculated via Gated SPECT) Stress Image LV EF (%): 75 Stress EDV (mL):102 TID: 1.04 Stress ESV (mL):26 FUNCTIONAL FINDINGS: Segmental wall motion analysis revealing no gross wall motion abnormalities IMPRESSIONS 1. Uniform myocardial tracer uptake with no significant perfusion abnormalities. 2. Normal LV ejection fraction of 75%. 3. LV wall motion analysis revealing no gross wall motion abnormalities. 4. Normal LV volume Low probability for coronary ischemia, based on the above findings No similar previous studies are available for comparison Dr Matias Valentin MD [facility] (Electronically Signed) Final Date: 04 May 2023 14:45 S
[2023-05-04] MEDS: regadenoson 0.4 Mg/5 ml Syringe IVP (09:21)
[2023-05-04 09:34] VITALS: BP 132/84; PULSE 72
== END 2023-05-04 07:30 | disposition home or self-care (01) ==
LOC: CDL 07:29
PROVIDERS: PCP Nurse Practitioner; Visit Provider Nurse Practitioner
DX: R06.00 Dyspnea, unspecified (principal)
CPT/HCPCS: 36415; 78452; 93017; 96374; A9500; J2785

== ENCOUNTER → 2023-05-27 08:48 | Outpatient (BNVA) | payer OTHER, SELFPAY | PROVIDERS: PCP Nurse Practitioner; Referring Provider Nurse Practitioner; Visit Provider Internal Medicine | DX: E21.3 Hyperparathyroidism, unspecified (principal); E21.0 Primary hyperparathyroidism; N20.0 Calculus of kidney; Z79.890 Hormone replacement therapy; Z87.442 Personal history of urinary calculi | CPT/HCPCS: 99203; 99204 ==

== ENCOUNTER 2023-08-02 07:41 | Outpatient (CLI) | payer OTHER, SELFPAY ==
--- NOTE | 2023-08-02 08:00 | NM_ITS ---
WS: [id number] EXAMINATION: NM parathyroid [id number] ORDER DATE: 08/02/2023 7:48 AM HISTORY: parathyroid TECHNIQUE: Parathyroid scintigraphy with 18.2 mCi Tc 99m administered. AP and oblique views obtained with and without chin and suprasternal notch markers. Initial and 2 hour delayed imaging acquired. FINDINGS: Normal salivary gland uptake. Normal bilateral homogeneous thyroid uptake with normal thyroid washout on the delayed imaging. Retention of radiotracer overlying the LEFT thyroid inferiorly and posteriorly suspicious for adenoma . No other suspicious findings. IMPRESSION: 1. Radiotracer retention lower pole LEFT thyroid posteriorly suspicious for parathyroid adenoma.
== END 2023-08-02 07:42 | disposition home or self-care (01) ==
LOC: RAD 07:42
PROVIDERS: PCP Nurse Practitioner; Visit Provider Internal Medicine
DX: E21.3 Hyperparathyroidism, unspecified (principal)
CPT/HCPCS: 78070; A9500

== ENCOUNTER → 2023-09-09 09:03 | Outpatient (BNVA) | payer OTHER, SELFPAY | PROVIDERS: PCP Nurse Practitioner; Visit Provider Internal Medicine | DX: E21.0 Primary hyperparathyroidism (principal); N20.0 Calculus of kidney | CPT/HCPCS: 99213; 99214 ==

== ENCOUNTER 2024-05-03 12:29 | Outpatient (CLI) | payer OTHER, SELFPAY | END 2024-05-03 12:30 | disposition home or self-care (01) | LOC: RT 12:30 | PROVIDERS: PCP Nurse Practitioner; Visit Provider Chiropractor | DX: J45.909 Unspecified asthma, uncomplicated (principal) | CPT/HCPCS: 94010 ==

== ENCOUNTER 2024-05-16 11:41 | Emergency (ER) | payer OTHER, SELFPAY ==
[2024-05-16 11:51] VITALS: BP 154/95; PULSE 58; RESP 18; TEMP 36.7; O2SAT 97; BMI 33.6
[2024-05-16 13:26] LABS: Basophils # 0.1 10^3/uL (0.0-0.1); Basophils % 0.9 %; Eosinophils # 0.3 10^3/uL (0.0-0.8); Eosinophils % 4.3 %; Hematocrit 53.3 % (37-53); Lymphocytes # 1.5 10^3/uL (0.8-4.8); Mean Corpuscular HGB Conc 33.2 g/dL (30-55); Mean Corpuscular Hemoglobin 28.7 pg (27-33); Mean Corpuscular Volume 86.4 fl (82-101); Mean Platelet Volume 9.5 fL (7.4-10.4); Monocytes # 0.6 10^3/uL (0.2-0.9); Monocytes % 8.8 %; Neutrophils # 4.21 10^3/uL (1.8-7.7); Neutrophils % 62.7 %; Nucleated Red Blood Cells % 0 %; Platelet Count 255 10^3/cmm (157-399); Red Blood Count 6.17 10^6/uL (3.85-5.65); Red Cell Distribution Width 13.6 % (12.1-15.1); White Blood Count 6.71 10^3/uL (3.29-11.43)
[2024-05-16 13:47] LABS: Alanine Aminotransferase 38 U/L (0-41); Albumin Level 4.4 g/dL (3.5-5.2); Alkaline Phosphatase 105 U/L (40-130); Anion Gap 17.1 (5-19); Aspartate Amino Transferase 27 U/L (0-40); Blood Urea Nitrogen 11 mg/dL (6-20); Calcium 9.1 mg/dL (8.5-10.5); Carbon Dioxide 24 mmol/L (22-29); Chloride 103 mmol/L (98-107); Creatinine Clr Calc Pharmacy 111.8106; Globulin 3.2 g/dL (1.3-4.6); Glomerular Filtration Rate 72.1 mL/min (90-130); Glucose 115 mg/dL (65-115); Osmolality Calculated 290 mOsm/kg (285-295); Potassium 4.1 mmol/L (3.5-5.1); Sodium 140 mmol/L (136-145); Total Bilirubin 0.6 mg/dL (0.15-1.2); Total Protein 7.6 g/dL (6.6-8.7)
[2024-05-16 14:28] VITALS: BP 140/95; PULSE 56; O2SAT 96
--- NOTE | 2024-05-16 14:36 | PC.PHAR ---
patient is from [place] faxed for med list at [phone]
--- NOTE | 2024-05-16 14:56 | CT_ITS ---
WS: [id number] CT HEAD NONCONTRAST HISTORY: headache TECHNIQUE: Contiguous axial imaging performed through the brain. Bone and soft tissue windows. Sagitt al and coronal reformats reviewed. All CT scans at [facility] use at least one of these dose optimization techniques: automated exposure control; mA and/or kV adjustment per patient size (includ es targeted exams where dose is matched to clinical indication); or iterative reconstruction. DLP: 1211.38 mGy.cm COMPARISON: 07/26/2022 No acute intracranial hemorrhage, midline shift or mass effect. No atrophy or prior infarcts or herniation. Ventricles: Normal size with no hydrocephalus. No inferior displacement the cerebellar tonsils. Paranasal sinuses: Small mucous retention cyst RIGHT maxillary sinus. No air-fluid levels. Mastoid air cells: Well pneumatized. Calvarium and scalp: Skull is intact with no soft tissue edema or swelling. CT/CT head wo con* [id number] IMPRESSION: 1. No acute intracranial hemorrhage or edema. 2. Stable noncontrast head CT since 07/26/2022. No prior infarcts.
--- NOTE | 2024-05-16 15:07 | ED_ITS ---
HPI - Dizziness 2 General: Chief Complaint: Dizziness Stated Complaint: dizzy Time Seen by Provider: 05/16/24 14:13 History of Present Illness: HPI Narrative: 44-year-old male presents emergency room with dizziness and headache for last 4 days describes a frontal headache with unsteady dizziness not really true vertiginous like symptoms. He is has a history of migraines he is taken Imitrex several times the last 4 days never took more than 100 mg in a given day but he never had any relief with his symptoms. He has been photophobic and slightly photophobic. No nausea he states he did vomit 1 time 3 days ago. Denies any chest or abdominal pain no hematochezia melena hematemesis coffee-ground emesis. Associated symptoms: Reports headache(s); Denies chest pain or chills Related Data Home Medications Medication Instructions Recorded Confirmed aripiprazole 10 mg tablet (Abilify) 5 mg PO DAILY 04/01/22 05/16/24 levetiracetam 500 mg tablet 500 mg PO BID 04/28/23 05/16/24 tamsulosin 0.4 mg capsule 0.4 mg PO QPM 04/28/23 05/16/24 testosterone cypionate 200 mg/mL 200 mg SUBCUT Q28D 04/28/23 05/16/24 intramuscular oil allopurinol 300 mg tablet 300 mg PO DAILY 05/16/24 05/16/24 aripiprazole 10 mg tablet 10 mg PO DAILY 05/16/24 05/16/24 cetirizine 10 mg tablet 10 mg PO DAILY 05/16/24 05/16/24 cholecalciferol (vitamin D3) 25 25 mcg PO DAILY 05/16/24 05/16/24 mcg (1,000 unit) tablet (Vitamin D3) fluticasone propionate 50 2 spray intranasal DAILY 05/16/24 05/16/24 mcg/actuation nasal spray,suspension sertraline 100 mg tablet 50 mg PO DAILY 05/16/24 05/16/24 Previous Rx's Medication Instructions Recorded potassium citrate 15 mEq (1,620 15 meq PO BID #180 tabs 05/14/22 mg) tablet,extended release promethazine 25 mg tablet 25 mg PO Q6H PRN nausea and 05/16/24 vomiting #20 tabs topiramate 25 mg tablet (Topamax) 25 mg PO DAILY #30 tabs 05/16/24 Allergies Allergy/AdvReac Type Severity Reaction Status Date / Time No Known Allergies Allergy Verified 09/09/23 08:44 Review of Systems 2 Const: Denies: fever(s) or chills Card: Denies: chest pain Resp: Denies: dyspnea GI: Denies: abdominal pain : Denies: dysuria, urinary frequency or urinary urgency Musc: Denies: neck pain or back pain Skin/Breast: Denies: rash Neuro: Reports: headache(s) PFSH ED 2 PFSH: Medical History Diabetes Bilateral renal stones Clinical picture consistent with medullary sponge kidney. Hyperuricosuria Hyperoxaluria Calculus of kidney Surgical History History of cystoscopy History of gastric bypass History of lithotripsy Family History Mother Hypertension Father , At age 44 Cancer Kidney Social History Smoking and tobacco/nicotine status: never used tobacco/nicotine Alcohol intake: never Adopted: No Household members: spouse Marital status: service: Yes Current occupational status: disabled Physical Exam 2 Const: GENERAL APPEARANCE: cooperative ORIENTATION/CONSCIOUSNESS: Yes awake, Yes oriented to person, Yes oriented to place and Yes oriented to time HENMT: COMMON NORMALS: normocephalic, atraumatic and hearing grossly normal bilaterally HEAD & SCALP: normocephalic and atraumatic Resp: COMMON NORMALS: normal respiratory effort, No retractions, No use of accessory muscles and clear to auscultation bilaterally AUSCULTATION: clear to auscultation bilaterally Cardio: COMMON NORMALS: regular rate, regular rhythm and No murmurs present (Cardio) RATE: regular rate RHYTHM: regular rhythm GI: COMMON NORMALS: Soft to palpation and No hepatosplenomegaly present A USCULTATION: Yes normoactive bowel sounds PALPATION: Yes Soft to palpation, No Tenderness to palpation present (GI), No Guarding due to palpation present (GI) and Yes No hepatosplenomegaly present Extremity: COMMON NORMALS: normal to inspection, capillary refill normal, no clubbing, cyanosis or edema, no calf tenderness and no pedal edema Neuro: SENSORIUM/ORIENTATION: Yes oriented to person, Yes oriented to place and Yes oriented to time Skin: COMMON NORMALS: no rashes or lesions noted GENERAL SKIN EXAM: no rashes or lesions noted Course 2 Vital Signs: Vital signs: Vital Signs Temperature 98.1 F 05/16/24 11:51 Pulse Rate 55 L 05/16/24 17:56 Respiratory Rate 18 05/16/24 11:51 Blood Pressure 137/80 05/16/24 17:56 Pulse Oximetry 97 05/16/24 17:56 Oxygen Delivery Me thod Room Air 05/16/24 14:28 MDM - Dizziness Medical Decision Making Migraine treated with Depakene. Patient is feeling much better dizziness, and I think most of his symptoms are a migraine variant will discharge patient home started on topiramate can use promethazine to as needed for breakthrough. Follow-up with primary care. If symptoms persist may need to see neurology Lab Data 05/16/24 13:10 05/16/24 13:[address] 05/16/24 14:56 IMPRESSION: 1. No acute intracranial hemorrhage or edema. 2. Stable noncontrast head CT since 07/26/2022. No prior infarcts. Laboratory Results WBC 6.71 10^3/uL (3.29-11.43) 05/16/24 13:10 RBC 6.17 10^6/uL (3.85-5.65) H 05/16/24 13:10 Hgb 17.70 g/dL (11.27-16.99) H 05/16/24 13:10 Hct 53.3 % (37-53) H 05/16/24 13:10 MCV 86.4 fl (82-101) 05/16/24 13:10 MCH 28.7 pg (27-33) 05/16/24 13:10 MCHC 33.2 g/dL (30-55) 05/16/24 13:10 RDW 13.6 % (12.1-15.1) 05/16/24 13:10 Plt Count 255 10^3/cmm (157-399) 05/16/24 13:10 MPV 9.5 fL (7.4-10.4) 05/16/24 13:10 Neut % (Auto) 62.7 % 05/16/24 13:10 Lymph % (Auto) 23.0 % 05/16/24 13:10 [place] % (Auto) 8.8 % 05/16/24 13:10 Eos % (Auto) 4.3 % 05/16/24 13:10 Baso % (Auto) 0.9 % 05/16/24 13:10 Neut # (Auto) 4.21 10^3/uL (1.8-7.7) 05/16/24 13:10 Lymph # (Auto) 1.5 10^3/uL (0.8-4.8) 05/16/24 13:10 [place] # (Auto) 0.6 10^3/uL (0.2-0.9) 05/16/24 13:10 Eos # (Auto) 0.3 10^3/uL (0.0-0.8) 05/16/24 13:10 Baso # (Auto) 0.1 10^3/uL (0.0-0.1) 05/16/24 13:10 Nucleated RBC % (auto) 0 % 05/16/24 13:10 Nucleated RBCs # 0.0 /100WBC 05/16/24 13:10 Sodium 140 mmol/L (136-145) 05/16/24 13:10 Potassium 4.1 mmol/L (3.5-5.1) 05/16/24 13:10 Chloride 103 mmol/L (98-107) 05/16/24 13:10 Carbon Dioxide 24 mmol/L (22-29) 05/16/24 13:10 Anion Gap 17.1 (5-19) 05/16/24 13:10 BUN 11 mg/dL (6-20) 05/16/24 13:10 Creatinine 1.1 mg/dL (0.7-1.2) 05/16/24 13:10 GFR Calculation 72.1 mL/min (90-130) L 05/16/24 13:10 Glucose 115 mg/dL (65-115) 05/16/24 13:10 Calculated Osmolality 290 mOsm/kg (285-295) 05/16/24 13:10 Calcium 9.1 mg/dL (8.5-10.5) 05/16/24 13:10 Total Bilirubin 0.6 mg/dL (0.15-1.2) 05/16/24 13:10 AST 27 U/L (0-40) 05/16/24 13:10 ALT 38 U/L (0-41) 05/16/24 13:10 Alkaline Phosphatase 105 U/L (40-130) 05/16/24 13:10 Total Protein 7.6 g/dL (6.6-8.7) 05/16/24 13:10 Albumin 4.4 g/dL (3.5-5.2) 05/16/24 13:10 Globulin 3.2 g/dL (1.3-4.6) 05/16/24 13:10 All radiology interpretation(s) finalized by discharge Discharge Plan Discharge Patient Disposition: Home Clinical Impression: Headache, variant migraine Condition: Stable Prescriptions: New topiramate [Topamax] 25 mg tablet 25 mg PO DAILY Qty: 30 0RF promethazine 25 mg tablet 25 mg PO Q6H PRN (Reason: nausea and vomiting) Qty: 20 0RF No Action potassium citrate 15 mEq tablet extended release 15 meq PO BID Qty: 180 3RF aripiprazole [Abilify] 10 mg tablet 5 mg PO DAILY Rx Instructions: take 1/2 tablet by mouth daily for bipolar disorder levetiracetam 500 mg Tablet 500 mg PO BID tamsulosin 0.4 mg Capsule 0.4 mg PO QPM testosterone cypionate 200 mg/mL Oil 200 mg SUBCUT Q28D cetirizine 10 mg Tablet 10 mg PO DAILY sertraline 100 mg Tablet 50 mg PO DAILY Rx Instructions: take 1/2 tablet by mouth in the morning for depression allopurinol 300 mg Tablet 300 mg PO DAILY fluticasone propionate 50 mcg/actuation [place],Suspension 2 spray INTRANASAL DAILY Rx Instructions: administer into each nostril aripiprazole 10 mg Tablet 10 mg PO DAILY cholecalciferol (vitamin D3) [Vitamin D3] 25 mcg (1,000 unit) Tablet 25 mcg PO DAILY Discharge Orders: Discharge ED (Routine); Ordered 05/16/24 Ordered By: Casper Hdz Referrals: Teresita Wilson FNP [Primary Care Provider] - Discharge Diet: Usual diet Discharge Activity: Increase activity as tolerated Patient Instructions: Opioid Safety, Pain Management Activity Restrictions/Additional Instructions: Thank you for choosing [facility] for your healthcare needs today. It is very important that you follow up as instructed or that you return to the Emergency Department should you have concerns or if your condition changes or worsens in any way. You are seen in the emergency room for a migraine variant. CT of your head was normal. Will discharge you home recommend you start taking Topamax 1 tablet each night this helps prevent migraines and headaches in the future. You can use promethazine Tylenol and/or ibuprofen as needed if you have recurrent headaches follow-up with your primary care doctor. Coding Level of Care Code ED Consultant [employer]. Vice President [employer] for Lamine Jay
[2024-05-16] MEDS: ketorolac 30 mg/mL INJ IVP (15:40)
[2024-05-16] MEDS: diphenhydrAMINE 50 mg/mL SDV 1mL IVP (15:40)
[2024-05-16] MEDS: valproic acid inj 500 MG in sodium chloride 0.9% 50 ML 55 MG IV (15:41)
[2024-05-16 15:43] VITALS: BP 130/79; PULSE 55; O2SAT 97
[2024-05-16] MEDS: sodium chloride 0.9% 1,000 ML 999 ML IV (17:34)
[2024-05-16 17:55] VITALS: BP 130/79; PULSE 62; O2SAT 98
[2024-05-16 17:56] VITALS: BP 137/80; PULSE 55; O2SAT 97
== END 2024-05-16 17:57 | disposition home or self-care (01) ==
PROVIDERS: Emergency Medicine; Emergency Provider Family Medicine; PCP Nurse Practitioner
DX: G43.809 Other migraine, not intractable, without status migrainosus (principal); E11.9 Type 2 diabetes mellitus without complications
CPT/HCPCS: 36415; 70450; 80053; 85025; 96374; 96375; 99285; J1200; J1885; J3490; J7030

== ENCOUNTER 2024-10-16 03:29 | Emergency (ER) | payer OTHER, SELFPAY ==
[2024-10-16 03:36] VITALS: BP 123/77; PULSE 65; RESP 18; TEMP 36.2; O2SAT 97; BMI 33.7
--- NOTE | 2024-10-16 03:52 | W.ED.NAVMDI ---
HPI - Nausea/Vomiting/Diarrhea General: Chief complaint: Nausea/Vomiting/Diarrhea Stated complaint: ABD Pain\V\Diah Time Seen by Provider: 10/16/24 03:36 History of Present Illness: 44-year-old male patient with a least 5 days of vomiting, and now is developed diarrhea. He states that he has tried a brat diet, rice, and liquids, and has not been able to hold much down. He began to feel weak this morning, like he was going to pass out. Initially, he says the illness started with a cough, which is now resolved. No urinary symptoms. No blood in the stool or vomit. Related Data Home Medications ?Medication ?Instructions ?Recorded ?Confirmed aripiprazole 10 mg tablet (Abilify) 5 mg PO DAILY 04/01/22 05/16/24 levetiracetam 500 mg tablet 500 mg PO BID 04/28/23 05/16/24 tamsulosin 0.4 mg capsule 0.4 mg PO QPM 04/28/23 05/16/24 testosterone cypionate 200 mg/mL 200 mg SUBCUT Q28D 04/28/23 05/16/24 intramuscular oil allopurinol 300 mg tablet 300 mg PO DAILY 05/16/24 05/16/24 aripiprazole 10 mg tablet 10 mg PO DAILY 05/16/24 05/16/24 cetirizine 10 mg tablet 10 mg PO DAILY 05/16/24 05/16/24 cholecalciferol (vitamin D3) 25 25 mcg PO DAILY 05/16/24 05/16/24 mcg (1,000 unit) tablet (Vitamin D3) fluticasone propionate 50 2 spray intranasal DAILY 05/16/24 05/16/24 mcg/actuation nasal spray,suspension sertraline 100 mg tablet 50 mg PO DAILY 05/16/24 05/16/24 Previous Rx's ?Medication ?Instructions ?Recorded potassium citrate 15 mEq (1,620 15 meq PO BID #180 tabs 05/14/22 mg) tablet,extended release promethazine 25 mg tablet 25 mg PO Q6H PRN nausea and 05/16/24 vomiting #20 tabs topiramate 25 mg tablet (Topamax) 25 mg PO DAILY #30 tabs 05/16/24 ondansetron 4 mg disintegrating 4 mg PO Q6H PRN nausea and 10/16/24 tablet vomiting #14 tabs Allergies Allergy/AdvReac Type Severity Reaction Status Date / Time No Known Allergies Allergy Verified 10/16/24 03:40 PFSH ED PFSH: Medical History Diabetes Bilateral renal stones Clinical picture consistent with medullary sponge kidney. Hyperuricosuria Hyperoxaluria Calculus of kidney Surgical History History of cystoscopy History of gastric bypass History of lithotripsy Family History Mother Hypertension Father , At age 44 Cancer Kidney Social History Smoking and tobacco/nicotine status: never used tobacco/nicotine Alcohol intake: never Adopted: No Household members: spouse Marital status: service: Yes Current occupational status: disabled Physical Exam Const: COMMON NORMALS: no acute distress GENERAL APPEARANCE: cooperative; not ill appearing and not frail appearing HENMT: COMMON NORMALS: normocephalic, atraumatic and Normal external nose present HEAD & SCALP: normocephalic and atraumatic FACE & SINUS: normal facial exam and face symmetric NOSE: Normal external nose present Eye: COMMON NORMALS: Equal, round and reactive pupils present and EOMs intact bilaterally PUPIL: Yes Equal, round and reactive pupils present Neck/C-Spine: GENERAL: Yes trachea midline Chest: CHEST: Yes Symmetrical chest wall rise Resp: COMMON NORMALS: normal respiratory effort, No retractions, No use of accessory muscles and clear to auscultation bilaterally AUSCULTATION: clear to auscultation bilaterally Cardio: COMMON NORMALS: regular rate and regular rhythm RATE: regular rate RHYTHM: regular rhythm GI: COMMON NORMALS: Normal to inspection, nondistended, normoactive bowel sounds present Extremity: COMMON NORMALS: no pedal edema Neuro: MAJO COMA SCALE: document GCS findings [place] coma scale eye opening: Spontaneous [place] coma scale verbal response: Orientated [place] coma scale motor response: Obey commands [place] coma scale total score: 15 SENSORY EXAM: Yes extremities (intact) Psych: COMMON NORMALS: speech normal SPEECH: Yes normal speech Skin: COMMON NORMALS: no rashes or lesions noted GENERAL SKIN EXAM: no rashes or lesions noted Course Vital Signs: Vital signs: Vital Signs Temperature 97.1 F L 10/16/24 03:36 Pulse Rate 53 L 10/16/24 05:08 Respiratory Rate 16 10/16/24 05:08 Blood Pressure 139/85 10/16/24 05:08 Pulse Oximetry 94 10/16/24 05:08 Oxygen Delivery Me thod Room Air 10/16/24 05:08 MDM - Nausea/Vomiting/Diarrhea Medical Decision Making Patient is feeling improved. No active vomiting here. He has received 2 L of fluid, and antiemetics as well. He has a normal CBC, normal BMP, lactic acid of 1.4, normal lipase of 38, and a CRP of 5.1. His AST and ALT are not remarkable. Alk phos is 97. He will be allowed home with symptomatic treatment. As he is not overly tender, I do not believe CT scan or advanced imaging otherwise provides benefit. Lab Data 10/16/24 04:10 10/16/24 04:10 Laboratory Results WBC 7.19 10^3/uL (3.29-11.43) 10/16/24 04:10 RBC 5.85 10^6/uL (3.85-5.65) H 10/16/24 04:10 Hgb 16.60 g/dL (11.27-16.99) 10/16/24 04:10 Hct 49.1 % (37-53) 10/16/24 04:10 MCV 83.9 fl (82-101) 10/16/24 04:10 MCH 28.4 pg (27-33) 10/16/24 04:10 MCHC 33.8 g/dL (30-55) 10/16/24 04:10 RDW 13.2 % (12.1-15.1) 10/16/24 04:10 Plt Count 275 10^3/cmm (157-399) 10/16/24 04:10 MPV 9.8 fL (7.4-10.4) 10/16/24 04:10 Neut % (Auto) 58.9 % 10/16/24 04:10 Lymph % (Auto) 27.0 % 10/16/24 04:10 [place] % (Auto) 9.3 % 10/16/24 04:10 Eos % (Auto) 3.5 % 10/16/24 04:10 Baso % (Auto) 1.0 % 10/16/24 04:10 Neut # (Auto) 4.24 10^3/uL (1.8-7.7) 10/16/24 04:10 Lymph # (Auto) 1.9 10^3/uL (0.8-4.8) 10/16/24 04:10 [place] # (Auto) 0.7 10^3/uL (0.2-0.9) 10/16/24 04:10 Eos # (Auto) 0.3 10^3/uL (0.0-0.8) 10/16/24 04:10 Baso # (Auto) 0.1 10^3/uL (0.0-0.1) 10/16/24 04:10 Nucleated RBC % (auto) 0 % 10/16/24 04:10 Nucleated RBCs # 0.0 /100WBC 10/16/24 04:10 Sodium 138 mmol/L (136-145) 10/16/24 04:10 Potassium 4.3 mmol/L (3.5-5.1) 10/16/24 04:10 Chloride 102 mmol/L (98-107) 10/16/24 04:10 Carbon Dioxide 23 mmol/L (22-29) 10/16/24 04:10 Anion Gap 17.3 (5-19) 10/16/24 04:10 BUN 8 mg/dL (6-20) 10/16/24 04:10 Creatinine 1.1 mg/dL (0.7-1.2) 10/16/24 04:10 GFR Calculation 72.1 mL/min (90-130) L 10/16/24 04:10 Glucose 130 mg/dL (65-115) H 10/16/24 04:10 Calculated Osmolality 286 mOsm/kg (285-295) 10/16/24 04:10 Lactic Acid 1.4 mmol/L (0.5-2.2) 10/16/24 04:10 Calcium 10.1 mg/dL (8.5-10.5) 10/16/24 04:10 Total Bilirubin 0.6 mg/dL (0.15-1.2) 10/16/24 04:10 AST 32 U/L (0-40) 10/16/24 04:10 ALT 54 U/L (0-41) H 10/16/24 04:10 Alkaline Phosphatase 97 U/L (40-130) 10/16/24 04:10 C-Reactive Protein 5.1 mg/L (0.0-4.9) H 10/16/24 04:10 Total Protein 7.5 g/dL (6.6-8.7) 10/16/24 04:10 Albumin 4.4 g/dL (3.5-5.2) 10/16/24 04:10 Globulin 3.1 g/dL (1.3-4.6) 10/16/24 04:10 Lipase 38 U/L (13-60) 10/16/24 04:10 No radiology studies performed this visit Discharge Plan Discharge Patient Disposition: Home Clinical Impression: Gastroenteritis Condition: Stable Prescriptions: New ondansetron 4 mg tablet,disintegrating 4 mg PO Q6H PRN (Reason: nausea and vomiting) Qty: 14 0RF No Action potassium citrate 15 mEq tablet extended release 15 meq PO BID Qty: 180 3RF aripiprazole [Abilify] 10 mg tablet 5 mg PO DAILY Rx Instructions: take 1/2 tablet by mouth daily for bipolar disorder levetiracetam 500 mg Tablet 500 mg PO BID tamsulosin 0.4 mg Capsule 0.4 mg PO QPM testosterone cypionate 200 mg/mL Oil 200 mg SUBCUT Q28D cetirizine 10 mg Tablet 10 mg PO DAILY sertraline 100 mg Tablet 50 mg PO DAILY Rx Instructions: take 1/2 tablet by mouth in the morning for depression allopurinol 300 mg Tablet 300 mg PO DAILY fluticasone propionate 50 mcg/actuation [place],Suspension 2 spray INTRANASAL DAILY Rx Instructions: administer into each nostril aripiprazole 10 mg Tablet 10 mg PO DAILY cholecalciferol (vitamin D3) [Vitamin D3] 25 mcg (1,000 unit) Tablet 25 mcg PO DAILY topiramate [Topamax] 25 mg tablet 25 mg PO DAILY Qty: 30 0RF promethazine 25 mg tablet 25 mg PO Q6H PRN (Reason: nausea and vomiting) Qty: 20 0RF Discharge Orders: Discharge ED (Routine); Ordered 10/16/24 Ordered By: Etsuardo Guidry Referrals: Teresita Wilson FNP [Primary Care Provider] - 1-3 days Patient Instructions: Opioid Safety, Pain Management Activity Restrictions/Additional Instructions: Take nausea medication scheduled every 4 hours while awake for the feel you needed or not for the next 24 hours. Follow a liquid diet. If no vomiting for 24 hours, you may take nausea medication as needed at that point. You may add solid food back in your diet if no vomiting for 24 hours. Call your doctor later today for a follow-up appointment. Return for vomiting despite treatment, worsening pain, fever, other concerning symptoms. Print Language: Yoruba Coding Level of Care Code ED Quarter Doper for Lamine Jay
[2024-10-16] MEDS: sodium chloride 0.9% 1,000 ML 999 ML IV ×2 (04:14→05:04)
[2024-10-16] MEDS: ondansetron 2 mg/ML SDV 2 mL 8 MG IVP (04:15)
[2024-10-16 04:17] VITALS: BP 123/83; PULSE 57; RESP 18; O2SAT 94
[2024-10-16] MEDS: morphine 4 mg/mL SDV 1 mL IVP (04:17)
[2024-10-16 04:30] LABS: Basophils # 0.1 10^3/uL (0.0-0.1); Eosinophils # 0.3 10^3/uL (0.0-0.8); Eosinophils % 3.5 %; Hematocrit 49.1 % (37-53); Lymphocytes # 1.9 10^3/uL (0.8-4.8); Mean Corpuscular HGB Conc 33.8 g/dL (30-55); Mean Corpuscular Hemoglobin 28.4 pg (27-33); Mean Corpuscular Volume 83.9 fl (82-101); Mean Platelet Volume 9.8 fL (7.4-10.4); Monocytes # 0.7 10^3/uL (0.2-0.9); Monocytes % 9.3 %; Neutrophils # 4.24 10^3/uL (1.8-7.7); Neutrophils % 58.9 %; Nucleated Red Blood Cells % 0 %; Platelet Count 275 10^3/cmm (157-399); Red Blood Count 5.85 10^6/uL (3.85-5.65); Red Cell Distribution Width 13.2 % (12.1-15.1); White Blood Count 7.19 10^3/uL (3.29-11.43)
[2024-10-16 04:47] LABS: Alanine Aminotransferase 54 U/L (0-41); Albumin Level 4.4 g/dL (3.5-5.2); Alkaline Phosphatase 97 U/L (40-130); Blood Urea Nitrogen 8 mg/dL (6-20); C Reactive Protein 5.1 mg/L (0.0-4.9); Calcium 10.1 mg/dL (8.5-10.5); Carbon Dioxide 23 mmol/L (22-29); Chloride 102 mmol/L (98-107); Globulin 3.1 g/dL (1.3-4.6); Glomerular Filtration Rate 72.1 mL/min (90-130); Glucose 130 mg/dL (65-115); Lipase 38 U/L (13-60); Osmolality Calculated 286 mOsm/kg (285-295); Sodium 138 mmol/L (136-145); Total Bilirubin 0.6 mg/dL (0.15-1.2); Total Protein 7.5 g/dL (6.6-8.7)
[2024-10-16 04:49] LABS: Lactic Sepsis W/Reflex 1.4 mmol/L (0.5-2.2)
[2024-10-16 05:08] VITALS: BP 139/85; PULSE 53; RESP 16; O2SAT 94
[2024-10-16 05:27] LABS: Anion Gap 17.3 (5-19); Aspartate Amino Transferase 32 U/L (0-40); Potassium 4.3 mmol/L (3.5-5.1)
[2024-10-16 05:48] VITALS: BP 130/86; PULSE 51; O2SAT 90
== END 2024-10-16 05:47 | disposition home or self-care (01) ==
PROVIDERS: Emergency Provider Emergency Medicine; PCP Nurse Practitioner
DX: K52.9 Noninfective gastroenteritis and colitis, unspecified (principal); E11.9 Type 2 diabetes mellitus without complications
CPT/HCPCS: 36415; 80053; 83605; 83690; 85025; 86140; 96361; 96374; 96375; 99284; J2270; J2405; J7030

== ENCOUNTER → 2024-10-23 07:48 | Outpatient (BNVA) | payer OTHER, SELFPAY | PROVIDERS: PCP Nurse Practitioner; Referring Provider Nurse Practitioner; Visit Provider Nurse Practitioner Family | DX: D23.5 Other benign neoplasm of skin of trunk (principal); D23.62 Other benign neoplasm of skin of left upper limb, including shoulder; L57.8 Other skin changes due to chronic exposure to nonionizing radiation; D48.5 Neoplasm of uncertain behavior of skin | CPT/HCPCS: 11102; 99203 ==

== ENCOUNTER 2024-12-12 09:22 | Outpatient (CLI) | payer OTHER, SELFPAY ==
--- NOTE | 2024-12-12 09:29 | CT_ITS ---
WS: [id number] CT chest w con* [id number] HISTORY: NONCALCIFIED NODULE IN LEFT LOWER LOBE TECHNIQUE: Axial imaging performed through the thorax. Coronal and sagittal reformats are submitted. All CT scans at [facility] use at least one of these dose optimization techniques: automated exposure control; mA and/or kV adjustment per patient size (includes targeted exams where dose is matched to clinical indication); or iterative reconstruction. CONTRAST: Omnipaque 350; 100 mL IV. DLP: 535.40 mGy.cm COMPARISON: 03/28/2023 Lungs and central airway: Lungs are well aerated. No identifiable nodule in the LEFT lower lobe. Benign calcified granuloma measures 4 mm in the medial RIGHT lower lobe. No pneumonia. No mass or nodule. Pleura: Normal. No pleural effusion. Heart and pericardium: Normal size heart with no pericardial effusion. Mediastinum and bruno: No mediastinum or hilar adenopathy. Vessels: Normal size aortic and pulmonary artery. No coronary artery calcifications. Chest wall and lower neck: No soft tissue masses. Upper abdomen: Small hiatal hernia. Hepatic steatosis. Prior cholecystectomy. Gastric bypass. Osseous structures: No destructive process. CT/CT chest w con* [id number] IMPRESSION: 1. No suspicious pulmonary nodule or mass. 3 mm nodule in the LEFT lower lobe not definitely identified. 2. Benign calcified granuloma medial RIGHT lower lobe. 3. No mediastinal or hilar adenopathy. 4. Hepatic steatosis with prior cholecystectomy. 5. Prior gastric bypass.
[2024-12-12] MEDS: iohexol 350 mg/mL 500 mL Btl (per mL) IV (10:16)
== END 2024-12-12 09:23 | disposition home or self-care (01) ==
PROVIDERS: PCP Nurse Practitioner; Visit Provider Nurse Practitioner
DX: Z01.89 Encounter for other specified special examinations (principal); J84.10 Pulmonary fibrosis, unspecified; K76.0 Fatty (change of) liver, not elsewhere classified; Z90.49 Acquired absence of other specified parts of digestive tract; Z98.890 Other specified postprocedural states; K44.9 Diaphragmatic hernia without obstruction or gangrene
CPT/HCPCS: 71260